=== PATIENT | male | born 1970 | race Caucasian/White ===

== ENCOUNTER 2019-11-17 15:47 | Emergency (ER) | payer OTHER, SELFPAY ==
[2019-11-17 15:48] VITALS: BP 114/65; PULSE 126; RESP 18; TEMP 36.7; O2SAT 96; BMI 30.4
--- NOTE | 2019-11-17 16:02 | XR_ITS ---
PROCEDURE: XR ANKLE RT MIN 3V CLINICAL INDICATION: injury Posttraumatic pain COMPARISON: XR ANKLE RT MIN 3V from 06/03/2019 FINDINGS: There has been prior ORIF of the distal fibula. There is a subtle oblique lucency of the distal fibula which may be related to residual fracture line from the old injury. Please correlate with postoperative studies. There is only 1 other postoperative exam available at this institution dating 06/03/2019. No other significant anomalies are evident. Ankle mortise is preserved in the talar dome has an unremarkable appearance IMPRESSION: Prior ORIF of the distal fibula with oblique lucency of the distal fibula which could be related to residual fracture line from the old injury. Please correlate with other postoperative studies. Cannot exclude the possibility of a nondisplaced acute fracture at this area. Dictated by: Valdemar Quintana MD 11/17/2019 16:19 Electronically signed by Valdemar Quintana MD in [place] 11/17/2019 16:19
--- NOTE | 2019-11-17 16:02 | XR_ITS ---
PROCEDURE: XR ANKLE LT MIN 3V CLINICAL INDICATION: injury Posttraumatic pain COMPARISON: No exams were available for comparison FINDINGS: No fracture or dislocation. No lytic or blastic change. There is normal mineralization. The joint spaces are well-preserved. No significant degenerative/arthritic changes. No erosive changes evident. Other findings:None. IMPRESSION: No acute findings. Dictated by: Valdemar Quintana MD 11/17/2019 16:20 Electronically signed by Valdemar Quintana MD in [facility] 11/17/2019 16:20
--- NOTE | 2019-11-17 16:10 | [facility].EDGENADL ---
ED Disposition Clinical Impression: Contusion of left ankle Qualifiers: Encounter type: initial encounter Qualified Code(s): S90.02XA - Contusion of left ankle, initial encounter Right ankle sprain Qualifiers: Encounter type: initial encounter Involved ligament of ankle: unspecified ligament Qualified Code(s): S93.401A - Sprain of unspecified ligament of right ankle, initial encounter Disposition: Home, Self-Care Condition on Discharge: Good Instructions: How to Use Crutches, DI for Ankle Sprain, DI for Contusion, How to Take Care of Your Splint Additional Instructions: Use crutches, orthopedic boot and maintain splint until follow-up by orthopedic physician or carport erector. Ice and elevation for pain and swelling. [place] for pain. Obtain prior x-rays from [facility] prior to your orthopedic visit. Additional instructions for CONTROLLED SUBSTANCES: You have been prescribed a medication that is a controlled substance. Controlled substances include pain medications known as opiates and sedative nerve medications known as benzodiazepines. Tramadol, fioricet, and gabapentin are also controlled substances. Some common opiates include: Codeine (such as Tylenol #3) Hydrocodone (Vicodin, Lortab, Lorcet, [place]) Oxycodone (Percocet, Percodan, Oxycodone, Oxy IR) Some common benzodiazepines include: Diazepam (Valium) Lorazepam (Ativan) Alprazolam (Xanax) Clonazepam (Klonopin) Oxazepam (Serax) All of these controlled substances are highly addictive and frequently abused. Misuse can and frequently does lead to addiction as well as overdose and . Medication should be stored in a locked cabinet or other secure storage unit. Do not store the medication in a motor vehicle. Short term supplies, 3 days or less, are prescribed because of the highly addictive nature of the medication. Any of the controlled substance medication NOT taken should be disposed of properly and NOT SAVED. The recommended method of disposing of unused medications is: Place the medicines in a sealable plastic bag. If the medicine is a solid, crush it or add water to dissolve it. Add something undesirable (cat litter, coffee grounds, etc.) Dispose of sealed bag in household trash Do not flush or pour unused medicines down a sink or drain. Controlled substances should not be shared, given away or sold. Because of the addictive nature and frequent abuse, these medications are sometimes stolen. These medications should be kept in a safe place where they cannot be stolen. Do not keep them in your car or purse. Lost or stolen prescriptions for controlled substances WILL NOT BE REFILLED in this emergency department, regardless of whether a police report was filed. Prescriptions: Hydrocod/Acet 5/325 mg [[place] 5/325mg tablet] 1 tab PO Q6HP PRN #10 tab PRN Reason: Pain Prescription Printed Referrals: Blanche Hu APRN [Primary Care Provider] - Lauren Ahumada DPM [Staff Physician] - Ruma Osorio MD [Physician] - - Critical Care Critical Care Time: No Attestation: On 11/17/19, the high probability of a clinically significant, sudden or life threatening deterioration of the following system(s) required my full and direct attention, intervention and personal management. The time I documented below is in addition to time spent performing reported procedures but includes the following listed in this critical care notation. Medical Decision Making - Fahad Inquiry Pt receiving controlled substance: Yes Fahad was queried for this patient: Yes Reference #:: [id number] Risks and benefits of using a controlled substance: were discussed with pt by me Comment: 8 rxs. last rx pregabalin 11/09/19 Vital Signs: 11/17/19 15:48 11/17/19 16:33 11/17/19 17:09 Temperature 98.1 F Temperature Source Oral Pulse Rate [Radial] 126 H 117 H 108 H Respiratory Rate 18 Blood Pressure [Right Arm] 114/65 114/40 L 110/63 Blood Pressure Darline
[2019-11-17 16:33] VITALS: BP 114/40; PULSE 117; O2SAT 97
[2019-11-17 17:09] VITALS: BP 110/63; PULSE 108; O2SAT 97
[2019-11-17 17:21] VITALS: BP 110/63; PULSE 108; RESP 18; TEMP 36.8; O2SAT 97
== END 2019-11-17 17:22 | disposition home or self-care (01) ==
PROVIDERS: Emergency Provider Emergency Medicine; PCP Nurse Practitioner
DX: S93.401A Sprain of unspecified ligament of right ankle, initial encounter (principal); S90.02XA Contusion of left ankle, initial encounter; X50.1XXA Overexertion from prolonged static or awkward postures, initial encounter; Y92.017 Garden or yard in single-family (private) house as the place of occurrence of the external cause; W22.8XXA Striking against or struck by other objects, initial encounter; F17.210 Nicotine dependence, cigarettes, uncomplicated
CPT/HCPCS: 29515; 73610; 99284

== ENCOUNTER 2019-12-26 14:38 | Emergency (ER) | payer OTHER, SELFPAY ==
[2019-12-26] VITALS (7 sets, daily range): BP systolic 90–144; BP diastolic 60–116; PULSE 56–70; RESP 15–22; TEMP 36.6–36.7; O2SAT 97–100; BMI 30.4
--- NOTE | 2019-12-26 15:36 | CT_ITS ---
Procedure: CT ABDOMEN PELVIS WO CON Patient Age:49Y CLINICAL INDICATION: PAIN R/O STONE RLQ pain. Since 6 a.m. the the for covering small rule out stone COMPARISON: ABDPEL CT abdomen pelvis wo con from 07/12/2018 TECHNIQUE: No IV contrast but no oral contrast -helical axial images obtained with sagittal and coronal reformats. All CT scans at the facility use one or more dose reduction, viz: automated exposure control, ma/kV adjustment per patient size (including targeted exams where dose is matched to indication, i.e. head), or iterative reconstruction technique. FINDINGS: Lower thorax: No acute finding lung bases clear. Heart normal size tiny 4.5 mm nodule at the left CP angle on axial image 13 unchanged since July 2018, and can be followed. A vague 3 mm low-density at the periphery of left lower lobe axial image 3 stable as well. However given history of smoking may want consider follow-up CT chest or screening CT chest within 12-18 months in this smoker for more complete survey of the entire chest and to serve as baseline for future if significant smoking history ABDOMEN: Liver: No masses or biliary dilatation. Fatty changes are less evident than on last year's study. Stable very slightly generous left lobe similar to previous study.. Gallbladder: Contracted gallbladder contracted state likely accounts for slight generous wall thickness. No gallstones.. Common duct normal diameter no biliary ductal dilatation. No radio opaque stones. Pancreas: Unchanged. No masses. No inflammatory changes. No ductal dilatation. Adrenals: unremarkable KIDNEYS/URETERS: .. no calculi at either kidney but no hydronephrosis Right kidney: Question/suggestion of very subtle additional stranding about the the lower pole right kidney. This is best seen on axial images 60-66 and from coronal image 46-40. Similar features were seen on the previous 2019 study but today's findings here very slightly more evident. This is of questionable and with normal urinalysis most likely reflect some mild chronic changes but with the CT parents initially question of a recently passed stone or possibly small focal area of inflammation of such is localized pyelonephritis,. But with negative urinalysis I doubt this is of significance. To me shows no evidence of blood or nor UTI. However if if pain does persist in this region I would note this subtle stranding a extends from right kidney it towards the posterior aspect of right colon on axial image 63. And if pain persist and negative urine I would question if there could conceivably be a small inflamed diverticulum arising from the posterior aspect the padded flexure extending towards right kidney. Unlikely and unusual but mentioned this possibility if pain persist The right colon shows no mass lesion here. A generous stool is seen at right colon. The appendix and terminal ileum are well visualized and appear normal. No evidence of appendicitis. The small bowel appears normal in caliber the with no dilatation.. Unremarkable. Pelvis shows no free fluid. Small prostate and seminal vesicles appears satisfactory. Upper normal wall thickness at urinary bladder in part reflects its lack of distension Stomach& bowel: Nondistended. No obvious mass or thickening. Peritoneum: No abnormal fluid collections. . No free air. Lymph nodes: No enlarged lymph nodes apparent. Vasculature: No evidence of abdominal aortic aneurysm. The no retroperitoneal findings Bones: No acute fracture IMPRESSION: No prominent findings abdomen or pelvis. Minor observations below .Appendix normal. Terminal ileum normal Generous stool right colon noted Comment: Initially question kathrin
[2019-12-26 15:42] LABS: Basophils # 0.1 K/mm3 (0-0.2); Basophils % 0.7 % (0.1-2.0); Eosinophils # 0.3 K/mm3 (0.0-0.4); Eosinophils % 3.3 % (0.1-12.0); Hematocrit 44.4 % (42.0-52.0); Lymphocytes # 1.7 K/mm3 (0.7-4.5); Lymphocytes % 20.8 % (10-50); Mean Corpuscular HGB Conc 33.8 g/dL (31.8-35.4); Mean Corpuscular Hemoglobin 31.2 pg (27.0-31.2); Mean Corpuscular Volume 92.2 fl (80-94); Mean Platelet Volume 7.7 fl (7.4-10.4); Monocytes # 0.3 K/mm3 (0.1-1.0); Monocytes % 3.4 % (1.7-9.3); Neutrophils # 5.9 K/mm3 (1.8-7.8); Neutrophils % 71.8 % (37.0-80.0); Platelet Count 251 K/mm3 (142-424); Red Blood Count 4.81 M/mm3 (4.60-6.20); White Blood Count 8.2 K/mm3 (4.8-10.8)
[2019-12-26 15:46] LABS: Alanine Aminotransferase 29 U/L (12-78); Albumin Level 4.7 g/dl (3.5-5.0); Albumin/Globulin Ratio 1.4 (1.1-1.8); Alkaline Phosphatase 58 U/L (38-126); Anion Gap 11.4 mEq/L (5-15); Aspartate Amino Transferase 25 U/L (17-59); Bilirubin,Total 0.7 mg/dl (0.2-1.3); Blood Urea Nitrogen 12 mg/dl (9-20); Carbon Dioxide 29 mmol/L (22.0-30.0); Chloride 106 mmol/L (98-107); Creatinine Clearance Estimated 236 mL/min (50-200); Estimated Glomerular Filt Rate 143 ml/min (>60); GFR (African American) 173 ML/MIN (>60); Globulin 3.4 g/dL (1.3-3.2); Glucose 129 mg/dl (74-100); Potassium 4.4 mmoL/L (3.5-5.1); Sodium 142 mmol/L (136-145); Total Protein,Serum 8.1 g/dl (6.3-8.2)
[2019-12-26 15:48] LABS: Microscopic, Urine URINE MICROSCOPIC (MICROSCOPIC)
[2019-12-26 15:56] LABS: Appearance,Urine CLEAR (Clear); Bilirubin,Urine Negative (Negative); Blood, Urine Negative (Negative); Color,Urine YELLOW (Yellow); Glucose,Urine (UA) Negative (Negative); Ketones,Urine Negative (Negative); Leukocyte Esterase,Urine Negative (Negative); Nitrate,Urine Negative (Negative); PH,Urine 5.5 (5.0-8.5); Protein,Urine Negative (Negative); Specific Gravity, Urine 1.025 (1.005-1.030); Urobilinogen,Urine 0.2 EU/dl (0.2)
[2019-12-26 16:02] LABS: Squamous Epithelial Cell,Urine Occasional #/hpf (0-5); WBC,Urine Occasional #/hpf (0-3)
--- NOTE | 2019-12-26 16:33 | PC.NURSE ---
Pt provided with blanket at this time.
--- NOTE | 2019-12-26 17:00 | PC.NURSE ---
family at bedside waiting for
--- NOTE | 2019-12-26 18:30 | PC.NURSE ---
pt waiting to see md. family at bedside. pt upset with wait to be seen. informed of delay
--- NOTE | 2019-12-26 19:09 | [facility].EDGENADL ---
ED Disposition Clinical Impression: Right flank pain Constipation Qualifiers: Constipation type: unspecified constipation type Qualified Code(s): K59.00 - Constipation, unspecified Disposition: Home, Self-Care Condition on Discharge: Fair Instructions: DI for Constipation, DI for Flank Pain Additional Instructions: Tramadol and ibuprofen for pain. Follow-up with your primary care provider on Saturday. MiraLAX for constipation. A pulmonary nodule (spot on the lung) was discovered during your evaluation today. It is recommended that you follow-up with a primary care provider for further evaluation. Radiologist recommends repeat CT scan in 6 months. Additional instructions for CONTROLLED SUBSTANCES: You have been prescribed a medication that is a controlled substance. Controlled substances include pain medications known as opiates and sedative nerve medications known as benzodiazepines. Tramadol, fioricet, and gabapentin are also controlled substances. Some common opiates include: Codeine (such as Tylenol #3) Hydrocodone (Vicodin, Lortab, Lorcet, [place]) Oxycodone (Percocet, Percodan, Oxycodone, Oxy IR) Some common benzodiazepines include: Diazepam (Valium) Lorazepam (Ativan) Alprazolam (Xanax) Clonazepam (Klonopin) Oxazepam (Serax) All of these controlled substances are highly addictive and frequently abused. Misuse can and frequently does lead to addiction as well as overdose and . Medication should be stored in a locked cabinet or other secure storage unit. Do not store the medication in a motor vehicle. Short term supplies, 3 days or less, are prescribed because of the highly addictive nature of the medication. Any of the controlled substance medication NOT taken should be disposed of properly and NOT SAVED. The recommended method of disposing of unused medications is: Place the medicines in a sealable plastic bag. If the medicine is a solid, crush it or add water to dissolve it. Add something undesirable (cat litter, coffee grounds, etc.) Dispose of sealed bag in household trash Do not flush or pour unused medicines down a sink or drain. Controlled substances should not be shared, given away or sold. Because of the addictive nature and frequent abuse, these medications are sometimes stolen. These medications should be kept in a safe place where they cannot be stolen. Do not keep them in your car or purse. Lost or stolen prescriptions for controlled substances WILL NOT BE REFILLED in this emergency department, regardless of whether a police report was filed. Prescriptions: Ibuprofen [Ibuprofen 800mg Tab] 800 mg PO Q8HP PRN #15 tab PRN Reason: Moderate Pain Prescription Printed polyethylene glycoL 3350 [Miralax 17gm Packet] 17 gm PO DAILY #5 packet Prescription Printed Referrals: Blanche Hu APRN [Primary Care Provider] - - Critical Care Critical Care Time: No Attestation: On 12/26/19, the high probability of a clinically significant, sudden or life threatening deterioration of the following system(s) required my full and direct attention, intervention and personal management. The time I documented below is in addition to time spent performing reported procedures but includes the following listed in this critical care notation. Medical Decision Making - Medical Records Medical records reviewed: Yes: I reviewed the patient's medical records. MR Comment: Seen by me recently for ankle pain. Given a prescription for [place]. Says that he followed up with his orthopedist. He says he is not currently on any pain medicines for that condition. - Fahad Inquiry Pt receiving controlled substance: Yes Fahad was queried for this patient: Yes Reference #:: [id number] Risks and benefits of using a controlled substance: were discussed with pt by me Comment: 12 rxs. since I wrote rx for norco last visit here 3 rxs Tramadol Vital Signs: 12/26/19 15:38 12/26/19 16:34 12/26/19 17:00
[2019-12-26 19:35] LABS: Amylase 55 U/L (30-110); Lipase 218 U/L (23-300)
== END 2019-12-26 20:20 | disposition home or self-care (01) ==
PROVIDERS: Emergency Provider Emergency Medicine; PCP Nurse Practitioner
DX: K59.00 Constipation, unspecified (principal); R10.31 Right lower quadrant pain; F17.210 Nicotine dependence, cigarettes, uncomplicated
CPT/HCPCS: 74176; 80053; 81001; 82150; 83690; 85025; 96365; 96375; 99284; J2405

== ENCOUNTER 2020-04-04 20:19 | Emergency (ER) | payer OTHER, SELFPAY ==
[2020-04-04 20:27] VITALS: BP 129/91; PULSE 92; RESP 16; TEMP 36.6; O2SAT 95; BMI 31.6
[2020-04-04 20:46] VITALS: BP 0/0; PULSE 0; RESP 0; TEMP -17.7; TEMP 0
== END 2020-04-04 20:50 | disposition left against medical advice (07) ==
PROVIDERS: Emergency Provider Emergency Medicine; PCP Nurse Practitioner
DX: Z53.21 Procedure and treatment not carried out due to patient leaving prior to being seen by health care provider (principal); S80.11XA Contusion of right lower leg, initial encounter; R03.0 Elevated blood-pressure reading, without diagnosis of hypertension
CPT/HCPCS: 99211

== ENCOUNTER 2020-04-08 15:33 | Emergency (ER) | payer OTHER, SELFPAY ==
[2020-04-08 15:35] VITALS: BP 139/89; PULSE 86; RESP 20; TEMP 36.7; O2SAT 96; BMI 31.6
--- NOTE | 2020-04-08 15:48 | XR_ITS ---
PROCEDURE: XR KNEE RT 3V CLINICAL INDICATION: trauma COMPARISON: CR XR FEMUR RT 2V from 04/08/2020 FINDINGS: No fracture or dislocation. No lytic or blastic change. There is normal mineralization. The joint spaces are well-preserved. No significant degenerative/arthritic changes. No erosive changes evident. Other findings:None. IMPRESSION: No acute findings. Dictated by: Valdemar Quintana MD 04/08/2020 16:38 Valdemar Quintana MD in [place] 04/08/2020 16:38
--- NOTE | 2020-04-08 15:48 | XR_ITS ---
PROCEDURE: XR HIP RT 2-3V W/PELVIS CLINICAL INDICATION: trauma Pain following injury COMPARISON: CR XR FEMUR RT 2V from 04/08/2020 FINDINGS: No fracture or dislocation. No lytic changes. There is some minimal cortical thickening involving the mid shaft of the femur medially. This is nonspecific and could be due to old injury. IMPRESSION: No acute findings. Dictated by: Valdemar Quintana MD 04/08/2020 16:38 Valdemar Quintana MD in [facility] 04/08/2020 16:38
--- NOTE | 2020-04-08 15:48 | XR_ITS ---
PROCEDURE: XR FEMUR RT 2V CLINICAL INDICATION: trauma Pain COMPARISON: No exams were available for comparison FINDINGS: No fracture or dislocation. No lytic or blastic change. There is normal mineralization. The joint spaces are well-preserved. No significant degenerative/arthritic changes. No erosive changes evident. Other findings:There is some minimal cortical thickening involving the mid shaft of the femur medially nonspecific and may be due to an old injury. IMPRESSION: No acute findings. Dictated by: Valdemar Quintana MD 04/08/2020 16:39 Valdemar Quintana MD in [facility] 04/08/2020 16:39
--- NOTE | 2020-04-08 15:49 | XR_ITS ---
PROCEDURE: XR ANKLE RT MIN 3V CLINICAL INDICATION: trauma Posttraumatic pain and swelling COMPARISON: CR XR ANKLE RT MIN 3V from 06/03/2019 CR XR ANKLE LT MIN 3V from 11/17/2019 CR XR ANKLE RT MIN 3V from 11/17/2019 CR XR TIBIA FIBULA RT 2V from 04/08/2020 FINDINGS: There is diffuse soft tissue swelling medially and laterally at the ankle. There has been prior hardware removal with removal of the bone plate and multiple scored a cul screws at the distal fibula. There is an old fracture of the posterior distal tibia. Ankle mortise is preserved in the talar dome has an unremarkable appearance. No acute fracture is evident. IMPRESSION: Postsurgical changes with soft tissue swelling. No acute fracture. Dictated by: Valdemar Quintana MD 04/08/2020 16:36 Valdemar Quintana MD in [facility] 04/08/2020 16:36
--- NOTE | 2020-04-08 15:49 | XR_ITS ---
PROCEDURE: XR FOOT RT MIN 3V CLINICAL INDICATION: trauma Posttraumatic pain COMPARISON: No exams were available for comparison FINDINGS: No fracture or dislocation. No lytic or blastic change. There is normal mineralization. The joint spaces are well-preserved. No significant degenerative/arthritic changes. No erosive changes evident. Other findings:There is a prominent calcaneal spur. IMPRESSION: Negative foot Dictated by: Valdemar Quintana MD 04/08/2020 16:37 Valdemar Quintana MD in [facility] 04/08/2020 16:37
--- NOTE | 2020-04-08 15:50 | HMH.EDGENADL ---
ED Disposition Clinical Impression: Right ankle sprain Qualifiers: Encounter type: initial encounter Involved ligament of ankle: unspecified ligament Qualified Code(s): S93.401A - Sprain of unspecified ligament of right ankle, initial encounter Contusion of right lower extremity Qualifiers: Encounter type: initial encounter Qualified Code(s): S80.11XA - Contusion of right lower leg, initial encounter Disposition: Home, Self-Care Condition on Discharge: Good Additional Instructions: You were seen on an emergency basis. It is very important that you follow up with your primary care provider and/or specialist as we discussed within 2 days. All labs and imaging were obtained and interpreted here to rule out life threatening emergencies, but your final results should be reviewed by your primary doctor at your follow up appointment. Please return to the emergency department if any of your symptoms worsen, or if they do not improve as we discussed. Referrals: Blanche Hu APRN [Primary Care Provider] - Ruma Osorio MD [Physician] - - Critical Care Critical Care Time: No Attestation: On 04/08/20, the high probability of a clinically significant, sudden or life threatening deterioration of the following system(s) required my full and direct attention, intervention and personal management. The time I documented below is in addition to time spent performing reported procedures but includes the following listed in this critical care notation. Medical Decision Making - Medical Records Medical records reviewed: Yes: I reviewed the patient's medical records. - Fahad Inquiry Pt receiving controlled substance: No Vital Signs: 04/08/20 15:35 04/08/20 16:24 Temperature 98.0 F Temperature Source Oral Pulse Rate [Left Radial] 86 68 Respiratory Rate 20 20 Blood Pressure [Right Arm] 139/89 129/80 Blood Pressure Mean [Right Arm] 105 96 Blood Pressure Source [Right Arm] Automatic Cuff Automatic Cuff Blood Pressure Position [Right Arm] Sitting Sitting 02 Sat by Pulse Oximetry 96 97 Oxygen Delivery Method Room Air Room Air Orders (Tests/Meds): ED MEDICATIONS Discontinued Medications Generic Name Dose Route Start Last Admin Trade Name Freq PRN Reason Stop Dose Admin Hydrocodone Bitart/Acetaminophen 1 tab 04/08/20 15:50 04/08/20 16:01 Hydrocodone/Apap 5/325 Mg Tablet PO 04/08/20 15:51 1 tab ONCE ONE Administration Medical Decision Narrative: 49-year-old male presenting with right lower extremity injury. Distal pulses intact. X-rays obtained of the pelvis, right hip, right femur, right knee, right hip/fib, right ankle and right foot. These were negative for acute disease including fracture or dislocation but did demonstrate a well-healing old fracture of the distal fibula that is noncontributory to this visit. Patient given [place] here for pain control. Will place patient in Airc[place], ELS brace and given crutches and make him nonweightbearing until follow-up with orthopedics. No other injury sustained. General Adult HPI - General Stated complaint: AO fall on 04/05 injured R knee and ankle Time Seen by Provider: 04/08/20 15:50 - History of Present Illness HPI narrative: This is a 49-year-old male with a history of diabetes mellitus who presents 2 days after a right lower extremity injury whereby he was on a ladder and fell through one of the rungs dangling from his right lower extremity. He presented here initially but without being seen. Since then has been taking his prescribed tramadol without relief. He has had minimal weightbearing to the right lower extremity but is able to ambulate with an antalgic gait. No head strike or loss of consciousness. No other injury sustained. - Related Data Previous Rx's Medication Instructions Recorded Hydrocod/Acet 5/325 mg [[place] 1 tab PO Q6HP PRN #10 tab 11/17/19 5/325mg tablet] Ibuprofen [Ibuprofen 800mg Tab] 800 mg PO Q8HP PRN #
[2020-04-08 16:24] VITALS: BP 129/80; PULSE 68; RESP 20; O2SAT 97
[2020-04-08 17:07] VITALS: BP 118/67; PULSE 76; RESP 18; TEMP 36.7; O2SAT 99
== END 2020-04-08 17:08 | disposition home or self-care (01) ==
PROVIDERS: Emergency Provider Physician Assistant; PCP Nurse Practitioner
DX: S80.11XA Contusion of right lower leg, initial encounter (principal); S93.401A Sprain of unspecified ligament of right ankle, initial encounter; W11.XXXA Fall on and from ladder, initial encounter; Y92.89 Other specified places as the place of occurrence of the external cause; F17.210 Nicotine dependence, cigarettes, uncomplicated
CPT/HCPCS: 29505; 73502; 73552; 73562; 73590; 73610; 73630; 99282

== ENCOUNTER → 2020-04-20 12:03 | Outpatient (CLI) | payer OTHER, SELFPAY ==
--- NOTE | 2020-04-20 12:11 | XR_ITS ---
PROCEDURE: XR ANKLE RT MIN 3V CLINICAL INDICATION: right ankle injury Pain, fracture and Ree fracture COMPARISON: CR XR ANKLE RT MIN 3V from 06/03/2019 CR XR ANKLE LT MIN 3V from 11/17/2019 CR XR ANKLE RT MIN 3V from 11/17/2019 CR XR ANKLE RT MIN 3V from 04/08/2020 FINDINGS: Postsurgical changes with multiple lucencies through the distal fibula once again noted. There is diffuse soft tissue swelling medially and laterally. Ankle mortise is not widened and the talar dome has an unremarkable appearance. Mild hypertrophy noted at the anterior distal tibia. IMPRESSION: Postsurgical changes with soft tissue swelling Dictated by: Valdemar Quintana MD 04/20/2020 14:19 Valdemar Quintana MD in [facility] 04/20/2020 14:19
== END ==
PROVIDERS: PCP Nurse Practitioner; Visit Provider Orthopaedic Surgery
DX: S80.11XA Contusion of right lower leg, initial encounter (principal)
CPT/HCPCS: 73610

== ENCOUNTER 2020-05-12 21:51 | Emergency (ER) | payer OTHER, SELFPAY ==
[2020-05-12 21:52] VITALS: BP 127/74; PULSE 79; RESP 16; TEMP 36.7; O2SAT 96; BMI 32.2
--- NOTE | 2020-05-12 22:29 | HMH.EDWNDL ---
ED Disposition Clinical Impression: Edema of right lower leg Laceration of thigh Qualifiers: Encounter type: initial encounter Laterality: right Qualified Code(s): S71.111A - Laceration without foreign body, right thigh, initial encounter Disposition: Home, Self-Care Condition on Discharge: Good Instructions: DI for Laceration Repair Additional Instructions: please return for eval of lower ext and possible venous doppler in am Referrals: PCP,No [Primary Care Provider] - - Critical Care Critical Care Time: No Attestation: On 05/12/20, the high probability of a clinically significant, sudden or life threatening deterioration of the following system(s) required my full and direct attention, intervention and personal management. The time I documented below is in addition to time spent performing reported procedures but includes the following listed in this critical care notation. Medical Decision Making - Medical Records Medical records reviewed: Yes: I reviewed the patient's medical records. - Fahad Inquiry Pt receiving controlled substance: No Vital Signs: 05/12/20 21:52 Temperature 98.1 F Temperature Source Oral Pulse Rate [Left Radial] 79 Respiratory Rate 16 Blood Pressure [Right Arm] 127/74 Blood Pressure Mean [Right Arm] 91 Blood Pressure Source [Right Arm] Automatic Cuff Blood Pressure Position [Right Arm] Sitting 02 Sat by Pulse Oximetry 96 Oxygen Delivery Method Room Air Wound/Laceration HPI - General Chief Complaint: Wound/Laceration Stated Complaint: AO 1203 2100 piece metal in R Leg Time Seen by Provider: 05/12/20 22:05 Mode of Arrival: Ambulatory Source of Information: Patient, Spouse, Medical Record Limitations: No Limitations Description of Symptoms (Recalled from ER Triage Doc. by RN): Pt cut his right thigh on trailer. Pt unsure of last tetnus shot. - History of Present Illness HPI narrative: laceration to rt thigh has he caught on metal - he has ongoing swelling to rt lower ext - has prev fx to rt lower leg and has been ambulating and has reddness and swelling and has been asked to get venous doppler for possible dvt Onset (ago): hour(s) Extremity Location: Right: thigh Place: home Patient tetanus UTD: No Context: accidental Associated symptoms: none - Related Data Home Medications Medication Instructions Recorded Confirmed atorvastatin 10 mg tablet 10 mg PO DAILY 04/20/20 05/12/20 cetirizine 10 mg capsule 10 mg PO DAILY 04/20/20 05/12/20 lisinopril 5 mg tablet 5 mg PO DAILY 04/20/20 05/12/20 metformin 500 mg tablet 500 mg PO DAILY 04/20/20 05/12/20 omeprazole 20 mg capsule,delayed 20 mg PO DAILY 04/20/20 05/12/20 release pregabalin 100 mg capsule 100 mg PO DAILY 04/20/20 05/12/20 trazodone 50 mg tablet 50 mg PO DAILY 04/20/20 05/12/20 Allergies Allergy/AdvReac Type Severity Reaction Status Date / Time No Known Allergies Allergy Verified 04/20/20 13:02 [facility] History - Hepatitis A Screen Drug use history?: No High risk sexual behaviors?: No History of sexually transmitted infection?: No Currently employed?: No Childcare worker?: No Do you have indoor plumbing?: Yes Do you have electricity?: Yes Attestation statement:: This patient has been screened for Hepatitis A risk factors. I have reviewed the patient's past medical history: Yes Medical History: Reports:: Anxiety, Diabetes Mellitus Type 2, Gastroesophageal Reflux Disease(GERD), Hypertension Denies:: Cancer, Diabetes Mellitus Type 1, Internal Pacemaker, MRSA Other Medical History: Reports: Arthritis Laterality Cases: Right: Other, Bilateral: Tonsillectomy Other Surgeries: No: Pacemaker Amputation: No Fractures: Yes Comment: RT ankle surgery 05/28 at [facility]; RT ankle hardware removal 01/2020 at [facility]. - Social History Smoking Status: Current every day smoker Tobacco Type: cigarettes # Packs/Day (cigarettes): 1 Alcohol Intake: current Alcohol Intake Frequency:: holiday
[2020-05-12 22:43] VITALS: BP 108/72; PULSE 80; RESP 19; TEMP 36.8; O2SAT 98
== END 2020-05-12 22:48 | disposition home or self-care (01) ==
PROVIDERS: Emergency Provider Emergency Medicine
DX: S71.111A Laceration without foreign body, right thigh, initial encounter (principal); W26.8XXA Contact with other sharp object(s), not elsewhere classified, initial encounter; Y92.89 Other specified places as the place of occurrence of the external cause; E78.5 Hyperlipidemia, unspecified; I10 Essential (primary) hypertension; Z23 Encounter for immunization; E11.9 Type 2 diabetes mellitus without complications; K21.9 Gastro-esophageal reflux disease without esophagitis; F17.210 Nicotine dependence, cigarettes, uncomplicated
CPT/HCPCS: 12001; 90471; 90714; 99281

== ENCOUNTER 2020-08-17 11:38 | Emergency (ER) | payer OTHER, SELFPAY ==
[2020-08-17 11:40] VITALS: BP 117/71; PULSE 81; RESP 16; O2SAT 98
[2020-08-17 11:42] VITALS: BP 119/88; PULSE 89; RESP 18; TEMP 36.6; O2SAT 97; BMI 31.6
--- NOTE | 2020-08-17 11:57 | XR_ITS ---
PROCEDURE: XR FOOT RT 2V CLINICAL INDICATION: fall, swelling, pain COMPARISON: CR XR FOOT RT MIN 3V from 04/08/2020 FINDINGS: No fracture or dislocation. No lytic or blastic change. There is normal mineralization. The joint spaces are well-preserved. No significant degenerative/arthritic changes. No erosive changes evident. Other findings:Mild hallux valgus. Small calcaneal spur IMPRESSION: No acute findings. Dictated by: Valdemar Quintana MD 08/17/2020 15:56 Valdemar Quintana MD in [place] 08/17/2020 15:56
--- NOTE | 2020-08-17 11:57 | CA_ITS ---
APPROVED REPORT Right Lower Extremity Venous Study for DVT. Travel Clerk: Mame Vides RVT Indications Lower Extremity Pain: Right Lower Extremity Edema: Right Current Smoker swelling to RLE Risk Factors Current Smoker Vein Imaging CFV (R): compressive, spontaneous, phasic, augmentation FEM (R): compressive, spontaneous, phasic, augmentation POP (R): compressive, spontaneous, phasic, augmentation PTV (R): Compressible GSV (R): Compressible Peroneals (R):Compressible GAS (R): Compressible Findings Study suggests no evidence of DVT of the right lower extremity. Study suggests no evidence of SVT of the right lower extremity. Conclusion Study suggests no evidence of DVT of the right lower extremity. Study suggests no evidence of SVT of the right lower extremity. Critical Notification Date: 08/17/2020 Time: 12:57 Physician Name: Maria R-DAVID Nurse Electronically signed by : Valdemar Quintana MD 08/17/2020 18:27:59
--- NOTE | 2020-08-17 11:57 | XR_ITS ---
PROCEDURE: XR ANKLE RT MIN 3V CLINICAL INDICATION: fall, swelling, pain COMPARISON: CR XR ANKLE LT MIN 3V from 11/17/2019 CR XR ANKLE RT MIN 3V from 11/17/2019 CR XR ANKLE RT MIN 3V from 04/08/2020 CR XR ANKLE RT MIN 3V from 04/20/2020 FINDINGS: There postsurgical changes of the distal fibula with lucency is noted from previous hardware removal. No acute fracture or dislocation is evident. Soft tissue swelling is present at both medial and lateral aspect of the ankle. There is an old fracture of the posterior distal tibia. Mildly prominent calcaneal spur. IMPRESSION: As above, soft tissue swelling with postsurgical changes otherwise negative Dictated by: Valdemar Quintana MD 08/17/2020 15:55 Valdemar Quintana MD in [place] 08/17/2020 15:55
--- NOTE | 2020-08-17 12:05 | HMH.EDGENADL ---
ED Disposition Clinical Impression: Right ankle sprain Qualifiers: Encounter type: initial encounter Involved ligament of ankle: unspecified ligament Qualified Code(s): S93.401A - Sprain of unspecified ligament of right ankle, initial encounter Disposition: Home, Self-Care Condition on Discharge: Good Instructions: DI for Ankle Sprain Additional Instructions: Wear your orthopedic boot. Stay off of your foot as much as possible, elevate and ice to reduce swelling. Follow-up with Dr. Barrientos, call today to make an appointment to be seen. Continue tramadol for pain. Referrals: Blanche Hu APRN [Primary Care Provider] - Mor Barrientos MD [Staff Physician] - - Critical Care Critical Care Time: No Attestation: On 08/17/20, the high probability of a clinically significant, sudden or life threatening deterioration of the following system(s) required my full and direct attention, intervention and personal management. The time I documented below is in addition to time spent performing reported procedures but includes the following listed in this critical care notation. Medical Decision Making - Medical Records Medical records reviewed: Yes: I reviewed the patient's medical records. MR Comment: Reviewed orthopedic visit with Dr. Barrientos 04/20/2020 - Fahad Inquiry Pt receiving controlled substance: No Fahad was queried for this patient: Yes Vital Signs: 08/17/20 11:40 08/17/20 11:42 08/17/20 13:05 Temperature 97.9 F Temperature Source Oral Pulse Rate Pulse Rate [Right Radial] 81 89 66 Respiratory Rate 16 18 Blood Pressure Blood Pressure [Right Arm] 117/71 119/88 127/72 Blood Pressure Mean [Right Arm] 86 98 90 Blood Pressure Source Blood Pressure Source [Right Arm] Automatic Cuff Automatic Cuff Blood Pressure Position Blood Pressure Position [Right Arm] Sitting Sitting 02 Sat by Pulse Oximetry 98 97 97 Oxygen Delivery Method Room Air Room Air 08/17/20 13:14 Temperature 98.8 F Temperature Source Oral Pulse Rate 70 Pulse Rate [Right Radial] Respiratory Rate 20 Blood Pressure 127/72 Blood Pressure [Right Arm] Blood Pressure Mean [Right Arm] Blood Pressure Source Automatic Cuff Blood Pressure Source [Right Arm] Blood Pressure Position Sitting Blood Pressure Position [Right Arm] 02 Sat by Pulse Oximetry Oxygen Delivery Method Room Air - Lab Data Lab Results 08/17/20 12:00: WBC 7.7, RBC 5.12, Hgb 14.4, Hct 45.6, MCV 89.0, MCH 28.1, MCHC 31.5 L, RDW 13.5, Plt Count 206, MPV 7.7, Neut % (Auto) 62.6, Lymph % (Auto) 28.3, [place] % (Auto) 3.9, Eos % (Auto) 4.6, Baso % (Auto) 0.6, Neut # (Auto) 4.8, Lymph # (Auto) 2.2, [place] # (Auto) 0.3, Eos # (Auto) 0.4, Baso # (Auto) 0.0 08/17/20 12:00: Sodium 139, Potassium 4.2, Chloride 105, Carbon Dioxide 27, Anion Gap 11.2, BUN 13, Creatinine 0.80, Estimated Creat Clear 182, Estimated GFR 102, Est GFR ( Amer) 123, Glucose 141 H, Calcium 9.5, Total Bilirubin 0.4, AST 36, ALT 38, Alkaline Phosphatase 42, C-Reactive Protein 4.0, Total Protein 7.5, Albumin 4.4, Globulin 3.1, Albumin/Globulin Ratio 1.4 08/17/20 12:00: Lactate 1.8 08/17/20 12:00: ESR 10 Result diagrams: 08/17/20 12:00 08/17/20 12:00 Orders (Tests/Meds): ORDERS Category Date Time Status Tibia/fibula XR right 2 views [XR tibia fibula RT 2V] Exams 08/17/20 12:09 Taken Stat XR ankle RT min 3V Stat Exams 08/17/20 11:57 Taken XR foot RT 2V Stat Exams 08/17/20 11:57 Taken Blood Culture Stat Micro 08/17/20 12:00 Received - Radiology Data #1 Image(s): Ankle, Foot/Toes Image Reviewed: Yes I reviewed the patient's radiology image Ankle and foot: Old findings from prior trauma, healed fractures, prior open reduction internal fixation with hardware removal, no acute fracture or dislocation seen. - US Data US Images: Lower Extremity Findings Narrative: As per [facility] procedure, doppler report received from mold repair technician: Negative for DVT Gene
--- NOTE | 2020-08-17 12:09 | XR_ITS ---
PROCEDURE: Lower leg R CLINICAL INDICATION: Pain following injury COMPARISON: No exams were available for comparison FINDINGS: No acute fracture or dislocation. There has been prior hardware removal of the distal fibula. There is soft tissue swelling along the lower leg medially and laterally. No lytic or blastic change IMPRESSION: Postsurgical change. Soft tissue swelling otherwise Dictated by: Valdemar Quintana MD 08/17/2020 16:47 Valdemar Quintana MD in [place] 08/17/2020 16:47
--- NOTE | 2020-08-17 12:21 | PC.NURSE ---
pt return from xray notified cv lab of doppler order
[2020-08-17 12:30] LABS: Basophils % 0.6 % (0.1-2.0); Eosinophils # 0.4 K/mm3 (0.0-0.4); Eosinophils % 4.6 % (0.1-12.0); Hematocrit 45.6 % (42.0-52.0); Hemoglobin 14.4 g/dL (14.1-18.0); Lymphocytes # 2.2 K/mm3 (0.7-4.5); Lymphocytes % 28.3 % (10-50); Mean Corpuscular HGB Conc 31.5 g/dL (31.8-35.4); Mean Corpuscular Hemoglobin 28.1 pg (27.0-31.2); Mean Platelet Volume 7.7 fl (7.4-10.4); Monocytes # 0.3 K/mm3 (0.1-1.0); Monocytes % 3.9 % (1.7-9.3); Neutrophils # 4.8 K/mm3 (1.8-7.8); Neutrophils % 62.6 % (37.0-80.0); Platelet Count 206 K/mm3 (142-424); Red Blood Count 5.12 M/mm3 (4.60-6.20); Red Cell Distribution Width 13.5 % (11.5-17.5); White Blood Count 7.7 K/mm3 (4.8-10.8)
[2020-08-17 12:34] LABS: Lactic Acid 1.8 mmol/L (0.7-2.1)
[2020-08-17 12:35] LABS: Alanine Aminotransferase 38 U/L (12-78); Albumin Level 4.4 g/dl (3.5-5.0); Albumin/Globulin Ratio 1.4 (1.1-1.8); Alkaline Phosphatase 42 U/L (38-126); Anion Gap 11.2 mEq/L (5-15); Aspartate Amino Transferase 36 U/L (17-59); Bilirubin,Total 0.4 mg/dl (0.2-1.3); Blood Urea Nitrogen 13 mg/dl (9-20); Calcium 9.5 mg/dl (8.4-10.2); Carbon Dioxide 27 mmol/L (22.0-30.0); Chloride 105 mmol/L (98-107); Creatinine Clearance Estimated 182 mL/min (50-200); Estimated Glomerular Filt Rate 102 ml/min (>60); GFR (African American) 123 ML/MIN (>60); Globulin 3.1 g/dL (1.3-3.2); Glucose 141 mg/dl (74-100); Potassium 4.2 mmoL/L (3.5-5.1); Sodium 139 mmol/L (136-145); Total Protein,Serum 7.5 g/dl (6.3-8.2)
[2020-08-17 13:05] VITALS: BP 127/72; PULSE 66; O2SAT 97
[2020-08-17 13:12] LABS: Erythrocyte Sedimentation Rate 10 mm/hr (0-20)
[2020-08-17 13:14] VITALS: BP 127/72; PULSE 70; RESP 20; TEMP 37.1; O2SAT 98
== END 2020-08-17 13:15 | disposition home or self-care (01) ==
PROVIDERS: Emergency Provider Emergency Medicine; PCP Nurse Practitioner
DX: S93.401A Sprain of unspecified ligament of right ankle, initial encounter (principal); W00.0XXA Fall on same level due to ice and snow, initial encounter; E78.5 Hyperlipidemia, unspecified; I10 Essential (primary) hypertension; K21.9 Gastro-esophageal reflux disease without esophagitis; F17.210 Nicotine dependence, cigarettes, uncomplicated; Z79.84 Long term (current) use of oral hypoglycemic drugs; E11.65 Type 2 diabetes mellitus with hyperglycemia; Z79.899 Other long term (current) drug therapy
CPT/HCPCS: 73590; 73610; 73620; 80053; 83605; 85025; 85651; 86140; 87040; 93971; 99282

== ENCOUNTER 2020-09-13 20:09 | Emergency (ER) | payer OTHER, SELFPAY ==
[2020-09-13 20:10] VITALS: BMI 29.5
--- NOTE | 2020-09-13 21:49 | US_ITS ---
PROCEDURE: US TESTICULAR CLINICAL INDICATION: Testicular pain Pain and swelling of the testicles COMPARISON: No exams were available for comparison FINDINGS: Right testicle is 5 3 x 3 cm. Moderate-sized right hydrocele with some debris within the fluid. No right testicular mass. Blood flow is present within the right testicle. The epididymis is slightly prominent on right in the epididymal head region. Left testicle is 4 x 2 x 3 cm with blood flow noted. No testicular mass. Unremarkable left-sided epididymis. IMPRESSION: Right hydrocele with some debris within the fluid.. Mild prominence of the right epididymis which could be seen with epididymitis No testicular mass. Bilateral testicular blood flow is present. Dictated by: Valdemar Quintana MD 09/14/2020 06:46 Valdemar Quintana MD in [place] 09/14/2020 06:46
[2020-09-13 22:21] VITALS: BP 145/87; PULSE 74; RESP 16; TEMP 36.6; O2SAT 98; BMI 31.6
[2020-09-13 22:40] LABS: Basophils # 0.1 K/mm3 (0-0.2); Basophils % 0.5 % (0.1-2.0); Eosinophils # 0.4 K/mm3 (0.0-0.4); Eosinophils % 3.5 % (0.1-12.0); Hematocrit 43.8 % (42.0-52.0); Hemoglobin 14.6 g/dL (14.1-18.0); Lymphocytes # 3.3 K/mm3 (0.7-4.5); Lymphocytes % 31.1 % (10-50); Mean Corpuscular HGB Conc 33.2 g/dL (31.8-35.4); Mean Corpuscular Hemoglobin 28.3 pg (27.0-31.2); Mean Corpuscular Volume 85.3 fl (80-94); Mean Platelet Volume 7.7 fl (7.4-10.4); Monocytes # 0.6 K/mm3 (0.1-1.0); Monocytes % 5.2 % (1.7-9.3); Neutrophils # 6.3 K/mm3 (1.8-7.8); Neutrophils % 59.6 % (37.0-80.0); Platelet Count 230 K/mm3 (142-424); Red Blood Count 5.14 M/mm3 (4.60-6.20); Red Cell Distribution Width 13.2 % (11.5-17.5); White Blood Count 10.6 K/mm3 (4.8-10.8)
--- NOTE | 2020-09-13 22:46 | HMH.EDUROGM ---
ED Disposition Clinical Impression: Epididymitis, Edema of right lower leg, Cellulitis of right lower extremity Disposition: Home, Self-Care Condition on Discharge: Good Instructions: DI for Epididymitis Additional Instructions: use meds and see pcp in am Prescriptions: cephALEXin [cephALEXin 500mg capsule*] 500 mg PO TID #30 cap Transmission Status: Pending to [facility] levoFLOXacin [Levaquin 500mg tab] 500 mg PO DAILY #7 tab Transmission Status: Pending to [facility] Referrals: Blanche Hu APRN [Primary Care Provider] - - Critical Care Critical Care Time: No Attestation: On 09/13/20, the high probability of a clinically significant, sudden or life threatening deterioration of the following system(s) required my full and direct attention, intervention and personal management. The time I documented below is in addition to time spent performing reported procedures but includes the following listed in this critical care notation. Medical Decision Making - Medical Records Medical records reviewed: Yes: I reviewed the patient's medical records. - Fahad Inquiry Pt receiving controlled substance: No Vital Signs: 09/13/20 22:21 Temperature 97.8 F Temperature Source Oral Pulse Rate [Right] 74 Respiratory Rate 16 Blood Pressure [Right Arm] 145/87 H Blood Pressure Mean [Right Arm] 106 Blood Pressure Source [Right Arm] Automatic Cuff Blood Pressure Position [Right Arm] Sitting 02 Sat by Pulse Oximetry 98 Oxygen Delivery Method Room Air - Lab Data Lab results reviewed: Yes: I reviewed the patient's lab results. Lab Results 09/13/20 22:35: WBC 10.6, RBC 5.14, Hgb 14.6, Hct 43.8, MCV 85.3, MCH 28.3, MCHC 33.2, RDW 13.2, Plt Count 230, MPV 7.7, Neut % (Auto) 59.6, Lymph % (Auto) 31.1, [place] % (Auto) 5.2, Eos % (Auto) 3.5, Baso % (Auto) 0.5, Neut # (Auto) 6.3, Lymph # (Auto) 3.3, [place] # (Auto) 0.6, Eos # (Auto) 0.4, Baso # (Auto) 0.1 09/13/20 22:35: Sodium 139, Potassium 3.9, Chloride 100, Carbon Dioxide 31 H, Anion Gap 11.9, BUN 12, Creatinine 0.70, Estimated Creat Clear 208, Estimated GFR 119, Est GFR ( Amer) 144, Glucose 113 H, Calcium 9.8, Total Bilirubin 0.7, AST 28, ALT 21, Alkaline Phosphatase 41, C-Reactive Protein 4.6 H, Total Protein 7.8, Albumin 4.8, Globulin 3.0, Albumin/Globulin Ratio 1.6 Result diagrams: 09/13/20 22:35 09/13/20 22:35 Orders (Tests/Meds): ORDERS Category Date Time Status C-Reactive Protein Stat Lab 09/13/20 22:35 Results Complete Blood Count Auto Diff Stat Lab 09/13/20 22:35 Results Comprehensive Metabolic Panel Stat Lab 09/13/20 22:35 Results Erythrocyte Sedimentation Rate Stat Lab 09/13/20 22:35 Results Procalcitonin Stat Lab 09/13/20 22:35 Results Urinalysis and Microscopic Stat Lab 09/13/20 22:28 Ordered US scrotum [US Testicular] Stat Ultrasound 09/13/20 21:49 Taken - US Data US Images: Other (scrotal) ED US Reviewed: Yes: I discussed the US results w/the radiologist Findings Narrative: hydrocele Medical Decision Narrative: no torsion and has hx of rt swollen leg and has appt in am with pcp Male Urogenital HPI - General Chief complaint: Urogenital-Male Stated complaint: right testicle pain and swelling Time Seen by Provider: 09/13/20 22:40 Mode of Arrival: Ambulatory Source of Information: Patient, Medical Record Limitations: No Limitations Description of Symptoms (Recalled from ER Triage Doc. by RN): Right testicle pain no known injury - History of Present Illness HPI Narrative: pt with pain to rt testicle w/o trauma or fever and no penile d/c - also has chronic swelling to rt lower leg with reddness - has appt with pcp in am Complaint: testicle pain Onset (ago): day(s) Location: right testicle Severity: moderate Reports: denies other symptoms - Related Data Sexually active: Yes Home Medications Medication Instructions Recorded Confirmed atorvastatin 10 mg tablet
[2020-09-13 22:48] LABS: Alanine Aminotransferase 21 U/L (12-78); Albumin Level 4.8 g/dl (3.5-5.0); Albumin/Globulin Ratio 1.6 (1.1-1.8); Alkaline Phosphatase 41 U/L (38-126); Anion Gap 11.9 mEq/L (5-15); Aspartate Amino Transferase 28 U/L (17-59); Bilirubin,Total 0.7 mg/dl (0.2-1.3); Blood Urea Nitrogen 12 mg/dl (9-20); Calcium 9.8 mg/dl (8.4-10.2); Carbon Dioxide 31 mmol/L (22.0-30.0); Chloride 100 mmol/L (98-107); Creatinine Clearance Estimated 208 mL/min (50-200); Estimated Glomerular Filt Rate 119 ml/min (>60); GFR (African American) 144 ML/MIN (>60); Glucose 113 mg/dl (74-100); Potassium 3.9 mmoL/L (3.5-5.1); Sodium 139 mmol/L (136-145); Total Protein,Serum 7.8 g/dl (6.3-8.2)
[2020-09-13 22:53] LABS: C-Reactive Protein 4.6 mg/L (0-4)
[2020-09-13 23:06] LABS: Procalcitonin 0.055 ng/mL (0.0-2.0)
--- NOTE | 2020-09-13 23:19 | PC.NURSE ---
S/W [facility] on-call pharmacy for Lovenox dosing d/t DVT. 120mg SQ doing given
[2020-09-13 23:20] VITALS: BP 127/83; PULSE 87; RESP 17; TEMP 36.9; O2SAT 99
[2020-09-13 23:21] LABS: Erythrocyte Sedimentation Rate 7 mm/hr (0-20)
[2020-09-13 23:33] LABS: Microscopic, Urine URINE MICROSCOPIC (MICROSCOPIC)
[2020-09-13 23:45] LABS: Appearance,Urine CLEAR (Clear); Bilirubin,Urine Negative (Negative); Blood, Urine Negative (Negative); Color,Urine YELLOW (Yellow); Glucose,Urine (UA) Negative (Negative); Ketones,Urine Negative (Negative); Leukocyte Esterase,Urine Negative (Negative); Nitrate,Urine Negative (Negative); PH,Urine 6.5 (5.0-8.5); Protein,Urine TRACE (Negative); Urobilinogen,Urine 0.2 EU/dl (0.2)
[2020-09-13 23:54] LABS: Bacteria,Urine Trace /lpf
== END 2020-09-13 23:39 | disposition home or self-care (01) ==
PROVIDERS: Emergency Provider Emergency Medicine; PCP Nurse Practitioner
DX: N45.1 Epididymitis (principal); L03.115 Cellulitis of right lower limb; I10 Essential (primary) hypertension; E11.9 Type 2 diabetes mellitus without complications; K21.9 Gastro-esophageal reflux disease without esophagitis; F41.9 Anxiety disorder, unspecified; Z79.899 Other long term (current) drug therapy
CPT/HCPCS: 76870; 80053; 81001; 84145; 85025; 85651; 86140; 99283

== ENCOUNTER → 2020-09-13 20:19 | Outpatient (CLI) | payer OTHER, SELFPAY ==
--- NOTE | 2020-09-13 20:23 | XR_ITS ---
PROCEDURE: XR HIP LT 2-3V W/PELVIS CLINICAL INDICATION: PAIN IN RIGHT HIP Hip pain COMPARISON: CR XR HIP RT 2-3V W/PELVIS from 09/13/2020 FINDINGS: There is slight decrease in the hip joint space on both sides which may be seen with mild osteoarthritic change. No osteophyte formation apparent. There is a small area bony exostosis along the mid aspect of the femoral neck on both sides. This can be seen femoral acetabular impingement. No acute fracture or dislocation. No lytic or blastic change. Bony hypertrophy is present involving the right SI joint inferiorly IMPRESSION: 1. Mild osteoarthritic change. Possible femoral acetabular impingement. 2. Degenerative changes right SI joint. Dictated by: Valdemar Quintana MD 09/14/2020 05:49 Valdemar Quintana MD in [place] 09/14/2020 05:49
== END ==
PROVIDERS: Visit Provider Anesthesiology
DX: M25.551 Pain in right hip (principal)
CPT/HCPCS: 73502

== ENCOUNTER 2020-09-14 11:34 | Emergency (ER) | payer OTHER, SELFPAY ==
[2020-09-14 12:00] VITALS: BP 146/91; PULSE 87; RESP 19; TEMP 37; O2SAT 98; BMI 32.8
--- NOTE | 2020-09-14 12:28 | HMH.EDUTC ---
[facility] [place] Clinical Impression: Epididymitis, Cellulitis of right lower extremity Disposition: Home, Self-Care Condition on Discharge: Good Instructions: Cellulitis Additional Instructions: Make sure to keep appointment as scheduled with your Family Doctor tomorrow Return if needed Straight to ER if any life threatening symptoms Follow instructions you was given in the Emergency Room and take medication as prescribed Referrals: Blanche Hu APRN [Primary Care Provider] - As needed (Follow up tomorrow as scheduled) Forms: Work/School Release Time of Disposition: 12:36 Medical Decision Making - Fahad Inquiry Pt receiving controlled substance: No Fahad was queried for this patient: No Vital Signs: 09/14/20 12:00 09/14/20 12:43 Temperature 98.6 F 98.6 F Temperature Source Oral Pulse Rate 87 Pulse Rate [Right Brachial] 87 Respiratory Rate 19 19 Blood Pressure 146/91 H Blood Pressure [Right Arm] 146/91 H Blood Pressure Mean [Right Arm] 109 Blood Pressure Source [Right Arm] Automatic Cuff Blood Pressure Position [Right Arm] Sitting 02 Sat by Pulse Oximetry 98 Oxygen Delivery Method Room Air Medical Decision Narrative: Patient did not have out patient order with him for no injections Spoke with staff of his PCP Nadia Quiroga and they advised that she was not there today and would be back tomorrow and he will be seen then they are unsure of why patient is here and what injection he thinks he is suppose to get. Called and spoke with ED physician Dr Hutchinson that saw patient last night and he advised he wanted patient to follow up with PCP and he was given injection he needed last night in the ED and did not recommend he come in today for any medication that he was suppose to follow up with his PCP this morning. Spoke again with patient and he advised he may have been confused and he would follow up with his Family Doctor tomorrow as scheduled for further treatment [facility] [place] - General Stated complaint: was in ER last night, needs injection, male issue Time Seen by Provider: 09/14/20 12:28 Mode of Arrival: Ambulatory Source of Information: Patient Limitations: No Limitations Description of Symptoms (Recalled from Triage Doc. by RN): PATIENT WAS SEEN IN ER LAST NIGHT AND TREATED FOR CELLULITIS AND SWOLLEN TESTICLE. HE REPORTS HE WAS GIVEN ORAL ANTIBIOTICS AND TOLD TO FOLLOW UP WITH PCP TODAY FOR AN INJECTION . HE STATES HIS APPOINTMENT WAS CHANGED TO TOMORROW, BUT WAS TOLD HE NEEDED THE INJECTION TODAY SO HE CAME HERE. HEENT Symptoms (Recalled from RN notes): No Resp Symptoms (Recalled from RN notes): No Skin Symptoms (Recalled from RN notes): No MS Symptoms (Recalled from RN notes): Yes Functional Status (Recalled from RN notes): WNL - History of Present Illness Provider Complaint: Patient state that he was seen and treated last night in the ED for male problem and cellulitis in his right leg State that he was suppose to follow up with his PCP today and they changed his appointment to tomorrow and he understood that he was suppose to get some kind of injection today so he came in the [facility] wanting to get the injection but did not know what it was he was suppose to get thinks it was antibiotic shot of keflex - Related Data Home Medications Medication Instructions Recorded Confirmed atorvastatin 10 mg tablet 10 mg PO DAILY 04/20/20 09/14/20 lisinopril 5 mg tablet 5 mg PO DAILY 04/20/20 09/14/20 metformin 500 mg tablet 500 mg PO QID 04/20/20 09/14/20 omeprazole 20 mg capsule,delayed 20 mg PO DAILY 04/20/20 09/14/20 release pregabalin 100 mg capsule 100 mg PO DAILY 04/20/20 09/14/20 trazodone 50 mg tablet 50 mg PO DAILY 04/20/20 09/14/20 Amitriptyline HCl [Elavil 25mg 25 mg PO DAILY 09/14/20 09/14/20 tablet] Potassium 99 mg PO DAILY 09/14/20 09/14/20 cephALEXin [cephALEXin 500mg 500 mg PO TID 09/14/20 09/14/20 capsule*] levoFLOXacin [Levaquin 500mg 500 mg PO DAILY 09/14/20 09/14/20 ta
[2020-09-14 12:43] VITALS: BP 146/91; PULSE 87; RESP 19; TEMP 37; O2SAT 98
== END 2020-09-14 12:45 | disposition home or self-care (01) ==
PROVIDERS: Emergency Provider Nurse Practitioner; PCP Nurse Practitioner
DX: N45.1 Epididymitis (principal); L03.115 Cellulitis of right lower limb; I10 Essential (primary) hypertension; E78.5 Hyperlipidemia, unspecified; K21.9 Gastro-esophageal reflux disease without esophagitis; F41.9 Anxiety disorder, unspecified; E10.9 Type 1 diabetes mellitus without complications; Z79.84 Long term (current) use of oral hypoglycemic drugs; Z79.899 Other long term (current) drug therapy
CPT/HCPCS: 99202; G0463

== ENCOUNTER 2020-10-13 13:10 | Emergency (ER) | payer OTHER, SELFPAY ==
[2020-10-13 13:11] VITALS: BP 137/81; PULSE 88; RESP 18; TEMP 36.9; O2SAT 99; BMI 32.2
--- NOTE | 2020-10-13 13:29 | XR_ITS ---
PROCEDURE: XR ANKLE RT MIN 3V CLINICAL INDICATION: ankle pain trauma Fall with injury and pain COMPARISON: CR XR ANKLE RT MIN 3V from 11/17/2019 CR XR ANKLE RT MIN 3V from 04/08/2020 CR XR ANKLE RT MIN 3V from 04/20/2020 CR XR ANKLE RT MIN 3V from 08/17/2020 FINDINGS: Postsurgical changes are present with cortical thickening of the distal fibula with lucency is noted consistent with prior bone plate removal. Ankle mortise is intact. No acute fracture or dislocation. There is mild prominence of the calcaneal spur. There is overlying soft tissue swelling on both medial and lateral aspect of the ankle. IMPRESSION: Postsurgical changes with soft tissue swelling. No acute fracture. Dictated by: Valdemar Quintana MD 10/13/2020 13:56 Valdemar Quintana MD in [place] 10/13/2020 13:56
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
[2020-10-13 14:44] VITALS: BP 137/81; PULSE 88; RESP 18; TEMP 36.9; O2SAT 99
== END 2020-10-13 14:46 | disposition home or self-care (01) ==
PROVIDERS: Emergency Provider Emergency Medicine; PCP Nurse Practitioner
DX: S93.401A Sprain of unspecified ligament of right ankle, initial encounter (principal); W10.9XXA Fall (on) (from) unspecified stairs and steps, initial encounter; Y92.019 Unspecified place in single-family (private) house as the place of occurrence of the external cause; F41.8 Other specified anxiety disorders; E78.5 Hyperlipidemia, unspecified; I10 Essential (primary) hypertension; F17.210 Nicotine dependence, cigarettes, uncomplicated
CPT/HCPCS: 73610; 96372; 99282

== ENCOUNTER → 2020-10-18 13:46 | Outpatient (CLI) | payer OTHER, SELFPAY ==
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
== END ==
PROVIDERS: PCP Nurse Practitioner; Visit Provider Orthopaedic Surgery
DX: R60.9 Edema, unspecified (principal)
CPT/HCPCS: 93971

== ENCOUNTER → 2020-10-27 15:31 | Outpatient (CLI) | payer OTHER, SELFPAY ==
--- NOTE | 2020-10-27 15:31 | US_ITS ---
PROCEDURE: US TESTICULAR CLINICAL INDICATION: Testicular pain and swelling COMPARISON: US US TESTICULAR from 09/13/2020 FINDINGS: Right testicle is 5 x 3 x 3 cm. No obvious testicular mass. Testicular blood flow is present. The head of the epididymis is rounded in appearance but somewhat smaller than when compared to 09/13/2020xam exam. There is a moderate-sized right hydrocele with some internal debris The left testicle is 5 x 3 x 3 cm. 5 mm epididymal cyst noted on the left. Left-sided testicular blood flow is present. No obvious mass. IMPRESSION: 1. Moderate-sized right hydrocele. 2. The prominence of the right epididymal head is less so than when compared to the previous exam suggesting improvement in epididymitis 3. No evidence of testicular mass with bilateral testicular blood flow noted. Dictated by: Valdemar Quintana MD 10/27/2020 16:30 Valdemar Quintana MD in [place] 10/27/2020 16:30
== END ==
PROVIDERS: PCP Nurse Practitioner; Visit Provider Urology
DX: N50.819 Testicular pain, unspecified (principal)
CPT/HCPCS: 76870

== ENCOUNTER → 2020-11-24 08:59 | Outpatient (POV) | payer OTHER, SELFPAY ==
[2020-11-24 09:15] VITALS: BP 151/98; PULSE 74; RESP 20; O2SAT 98; BMI 33.7
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
== END ==
PROVIDERS: Visit Provider Clinical Nurse Specialist Family Health
DX: M25.859 Other specified joint disorders, unspecified hip (principal); M54.5 Low back pain; M46.1 Sacroiliitis, not elsewhere classified; M79.604 Pain in right leg
CPT/HCPCS: 99202; G0463

== ENCOUNTER 2020-12-02 11:25 | Day surgery (SDC) | payer OTHER, SELFPAY ==
[2020-12-02 12:15] VITALS: BP 92/61; PULSE 86; RESP 18; TEMP 36.4; O2SAT 97; BMI 32.8
[2020-12-02 14:06] VITALS: BP 95/58; PULSE 68; RESP 18; O2SAT 97
[2020-12-02 14:07] VITALS: BP 98/60; PULSE 61; RESP 18; O2SAT 97
[2020-12-02 14:49] VITALS: BP 96/58; PULSE 70; RESP 18; O2SAT 97
--- NOTE | 2020-12-02 15:01 | HMH.PMPROC ---
- Procedure Date: 12/02/20 Time: 15:01 Anesthesiologist:: Martha Bender MD Complications:: None Pre-procedure Diagnosis:: Right sided sacroiliitis, chronic hip pain Post-procedure Diagnosis:: Same Indications for Procedure:: Patient is a very pleasant 50-year-old male who we're treating for chronic low back and hip pain related to the above diagnosis. He has trialed conservative treatment including oral pain medication as well as home exercise program with minimal relief. The plan for today is for him to undergo right-sided lumbar epidural steroid injection. Procedure Details:: Right SI joint injection under fluoroscopy Informed consent was obtained and the risks and benefits of the procedure was going to the patient. Patient was taken to the procedure room. Patient was placed prone on the procedure table. The right hip was prepped using ChloraPrep. The skin and subcutaneous tissues were anesthetized using lidocaine. I placed a 22-gauge spinal needle into the inferior aspect of the right SI joint. Needle placement was confirmed with dye. After this we injected 5 mL bupivacaine 0.25% and Depo-Medrol 40 mg into the right SI joint. The patient tolerated the procedure well with no complication. Plan and Disposition:: Follow-up with this patient in 2 weeks. Will reevaluate pain symptoms at that time. Of note, this patient has undergone surgery for her right lower extremity fracture has been complicated by significant pain with autonomic changes of color and temperature changes to his right lower extremity and foot. He is currently on Orange 5/325 mg 1 tablet p.o. twice daily as well as Lyrica. He reports this gives him some pain relief. Also having left testicular pain which is managed by Dr. Goldberg. We have discussed with the patient regarding possible DRG therapy in the future for his right lower extremity pain and autonomic changes if this injection therapy does not give him relief.
== END 2020-12-02 14:50 | disposition home or self-care (01) ==
LOC: SC.PAINP 11:27
PROVIDERS: PCP Nurse Practitioner; Visit Provider Anesthesiology Pain Medicine
DX: M46.1 Sacroiliitis, not elsewhere classified (principal); G89.29 Other chronic pain; I10 Essential (primary) hypertension; E78.5 Hyperlipidemia, unspecified; K21.9 Gastro-esophageal reflux disease without esophagitis; M19.90 Unspecified osteoarthritis, unspecified site; E11.9 Type 2 diabetes mellitus without complications; F41.9 Anxiety disorder, unspecified; Z72.0 Tobacco use
CPT/HCPCS: 27096; G0260; J1040; Q9966

== ENCOUNTER → 2020-12-26 09:09 | Outpatient (POV) | payer OTHER, SELFPAY ==
[2020-12-26 09:27] VITALS: BP 146/81; PULSE 73; RESP 18; O2SAT 97; BMI 32.2
--- NOTE | 2020-12-26 09:34 | HMH.PAINSOAP ---
[facility] Pain Management SOAP Note Subjective:: Patient is a 50-year-old white male who presents today for follow-up after right SI injection #1. Patient is being treated for sacroiliitis. He is having low back pain with radicular pain into bilateral hips. Patient was referred to orthopedics. He was told at orthopedics that he will likely need to undergo a right hip replacement. He was given bilateral intra-articular hip injections with no relief. Patient also says he got no relief with the SI injection. His pain is a 10 out of 10 today. He is managed with [place] 5 mg 1 tablet p.o. 3 times twice daily and Lyrica per his primary care provider. He is in excruciating pain today. He understands we will not be able to give him any other medications that he is currently on unfortunately. The injections are not given him any relief. He has not had any imaging of his lumbar spine. His pain was previously in his low back and bilateral hips, however, since the injection he is now having pain radicular into the right leg. He says it is from the right low back to the right foot. He is having heaviness and weakness in the right foot as well as paresthesia. He has continued with home stretching and is currently in physical therapy with no significant relief. He will continue with physical therapy to the best of his ability. He has also tried anti-inflammatories with no relief. We did discuss imaging of his lumbar spine. This was also recommended by orthopedics. We will send him for an MRI of his lumbar spine. Review of Systems General: No recent weight changes, no fever, no sleep disturbances Respiratory: No cough, no shortness of air, no recurring pulmonary infections Cardiovascular/peripheral vascular: No chest pain, no palpitations, no edema, no shortness of breath Gastrointestinal: No new onset incontinence, normal bowel movements reported Genitourinary: No new onset incontinence Musculoskeletal: Low back pain with radicular pain into bilateral hips and right lower extremity Psychiatric: Normal mood/affect Neurological: Weakness right lower extremity Objective:: Physical exam General: Alert and oriented x3, no acute distress, pleasant and cooperative, [on room air] Lungs: Respirations even and unlabored, symmetrical chest expansion Eyes: PERRL Musculoskeletal: Flexion and extension of [] lumbar spine somewhat guarded secondary to pain, deep tendon reflexes normal, strength in upper and lower extremities [5/5], [abnormal gait noted] Neurological: Speech clear, paper products inspector equal, no gross sensory deficit Assessment:: Low back pain, bilateral hip pain, right leg pain with paresthesia Plan:: We will send the patient for an MRI of his lumbar spine. He will continue with anti-inflammatories and home stretching. He will also continue with his physical therapy at this time. Physical therapy does not seem to be giving him much relief at this time. We will see him back after the MRI to discuss a further plan of care. Patient has been instructed to contact the clinic with any concerns before the next appointment. Dr. Landaverde has reviewed this note and agrees with this plan of care. This note was dictated using voice recognition software and make contain errors or omissions. [facility] History I have reviewed the patient's past medical history: Yes Medical History: Reports:: Anxiety, Gastroesophageal Reflux Disease(GERD), Hyperlipidemia, Hypertension Denies:: Cancer, Diabetes Mellitus Type 1, Diabetes Mellitus Type 2, Internal Pacemaker, MRSA, Seizures *Have you ever received a pneumonia vaccine?: No *Have you received a flu vaccine this season?: No Other Medical History: Reports: Arthritis. Denies: Blood Transfusion Reaction Laterality Cases: Right: Other, Bilateral: Tonsillectomy Other Surgeries: Yes: No Previous Surgery, Other. No: Pacemaker Amputation: No Fractures: Yes (right ankle fx with hardware placement, hardware removed a yea
== END ==
PROVIDERS: PCP Nurse Practitioner; Visit Provider Clinical Nurse Specialist Family Health
DX: M54.5 Low back pain (principal); M25.551 Pain in right hip; M25.552 Pain in left hip; M79.604 Pain in right leg; R20.2 Paresthesia of skin
CPT/HCPCS: 99212; G0463

== ENCOUNTER → 2021-01-04 08:25 | Outpatient (CLI) | payer OTHER, SELFPAY ==
--- NOTE | 2021-01-04 08:29 | MR_ITS ---
PROCEDURE: MR LUMBAR SPINE WO CON CLINICAL INDICATION: LBP Chronic low back pain radiating down right leg COMPARISON: No exams were available for comparison TECHNIQUE: Standard multiplanar multiecho sequences are performed without contrast. 3-D MIP and myelographic images are also rendered and reviewed FINDINGS: The spinal cord ends at the L1-L2 level. There is good alignment. T12-L1: Mild degenerative disc disease. L1-L2: Mild degenerative disc disease. Minimal bulging disc. Mild facet and ligamentum hypertrophic change. The bulging disc is slightly eccentric toward the right with 2 mm retrolisthesis of L1. L2-L3: Mild facet and ligamentum hypertrophic change. L3-L4: Mild facet and ligamentum hypertrophic change with mild bilateral lateral recess narrowing and minimal bulging disc. L4-5: Minimal bulging disc with mild facet and ligamentum hypertrophy. There is mild left lateral recess narrowing L5-S1: Mild facet and ligamentum hypertrophy IMPRESSION: Mild multilevel lumbar spondylosis. Please see above for detailed description at each level. No extruded disc herniation. No bony canal stenosis. Dictated by: Valdemar Quintana MD 01/04/2021 17:43 Valdemar Quintana MD in [place] 01/04/2021 17:43
== END ==
PROVIDERS: PCP Nurse Practitioner; Visit Provider Clinical Nurse Specialist Family Health
DX: M54.5 Low back pain (principal)
CPT/HCPCS: 72148; 76376

== ENCOUNTER 2021-01-06 19:31 | Emergency (ER) | payer OTHER, SELFPAY ==
[2021-01-06 19:32] VITALS: BP 127/78; PULSE 91; RESP 16; TEMP 36.9; O2SAT 96; BMI 32.2
--- NOTE | 2021-01-06 20:30 | HMH.EDGENADL ---
ED Disposition Clinical Impression: Muscle cramps at night Joint pain Qualifiers: Joint pain location: unspecified Qualified Code(s): M25.50 - Pain in unspecified joint Disposition: Home, Self-Care Condition on Discharge: Good Instructions: DI for Nocturnal Leg Cramps, Stretching Routine Before Bedtime May Decrease Nighttime Leg Cramps, DI for Arthralgia Additional Instructions: You have been evaluated for muscle cramps and joint pain. Please take multivitamin daily. Take naproxen twice daily. Try home remedies like quinine, stretching, exercise. Follow-up with your primary care doctor as soon as available. Return to the emergency department at once for any new or worsening symptoms, fevers, weakness, headache, neck pain, any other concerns. Prescriptions: Multivitamin 1 each PO DAILY #30 tab Transmission Status: Pending to [id number] Naproxen [Naproxen 500mg tab] 500 mg PO BID #30 tab Transmission Status: Pending to [id number] Referrals: Blanche Hu APRN [Primary Care Provider] - Time of Disposition: 21:49 - Critical Care Critical Care Time: No Attestation: On 01/06/21, the high probability of a clinically significant, sudden or life threatening deterioration of the following system(s) required my full and direct attention, intervention and personal management. The time I documented below is in addition to time spent performing reported procedures but includes the following listed in this critical care notation. Medical Decision Making - Medical Records Medical records reviewed: Yes: I reviewed the patient's medical records. - Fahad Inquiry Pt receiving controlled substance: No Vital Signs: 01/06/21 19:32 Temperature 98.4 F Temperature Source Oral Pulse Rate [Right] 91 H Respiratory Rate 16 Blood Pressure [Right Arm] 127/78 Blood Pressure Mean [Right Arm] 94 02 Sat by Pulse Oximetry 96 - Lab Data Lab Results 01/06/21 20:25: WBC 10.4, RBC 4.93, Hgb 13.8 L, Hct 40.9 L, MCV 82.9, MCH 28.0, MCHC 33.8, RDW 13.9, Plt Count 235, MPV 8.5, Neut % (Auto) 60.9, Lymph % (Auto) 32.6, [place] % (Auto) 3.3, Eos % (Auto) 2.6, Baso % (Auto) 0.6, Neut # (Auto) 6.3, Lymph # (Auto) 3.4, [place] # (Auto) 0.3, Eos # (Auto) 0.3, Baso # (Auto) 0.1 01/06/21 20:25: Sodium 137, Potassium 4.6, Chloride 103, Carbon Dioxide 24, Anion Gap 14.6, BUN 17, Creatinine 0.70, Estimated Creat Clear 212, Estimated GFR 119, Est GFR ( Amer) 144, Glucose 210 H, Calcium 9.1, Phosphorus 3.1, Magnesium 1.2 L, Total Bilirubin 0.6, AST 34, ALT 41, Alkaline Phosphatase 37 L, Total Creatine Kinase 167, Total Protein 7.3, Albumin 4.4, Globulin 2.9, Albumin/Globulin Ratio 1.5 Result diagrams: 01/06/21 20:25 01/06/21 20:25 Orders (Tests/Meds): ED MEDICATIONS Discontinued Medications Generic Name Dose Route Start Last Admin Trade Name Freq PRN Reason Stop Dose Admin Naproxen 500 mg 01/06/21 21:19 01/06/21 21:36 Naproxen 500mg Tablet PO 01/06/21 21:20 500 mg ONCE ONE Administration ORDERS Category Date Time Status Urinalysis and Microscopic Stat Lab 01/06/21 20:30 Ordered ECG Request by /Raymundo Stat Y 01/06/21 20:30 Ordered Medical Decision Narrative: In summary this is a 50-year-old male presenting to the emergency department with muscle aches and muscle cramps. Patient clinically stable on arrival. Vital signs within normal limits. Differential diagnoses include electrolyte derangements, hypokalemia, hypomagnesemia, renal insufficiency, arthritis. Will obtain CBC, CMP, magnesium level, phosphorus level. Patient given Naproxen and oral fluids. Patient is scheduled for a cardiac stress test this week at [facility]. Initial laboratory results are reassuring. No leukocytosis. No anemia. No renal insufficiency. No derangement of potassium or sodium. Patient's magnesium is low. Recommended supplement, multivitamin. Otherwise, no clear cause
[2021-01-06 20:38] LABS: Basophils # 0.1 K/mm3 (0-0.2); Basophils % 0.6 % (0.1-2.0); Eosinophils # 0.3 K/mm3 (0.0-0.4); Eosinophils % 2.6 % (0.1-12.0); Hematocrit 40.9 % (42.0-52.0); Hemoglobin 13.8 g/dL (14.1-18.0); Lymphocytes # 3.4 K/mm3 (0.7-4.5); Lymphocytes % 32.6 % (10-50); Mean Corpuscular HGB Conc 33.8 g/dL (31.8-35.4); Mean Corpuscular Volume 82.9 fl (80-94); Mean Platelet Volume 8.5 fl (7.4-10.4); Monocytes # 0.3 K/mm3 (0.1-1.0); Monocytes % 3.3 % (1.7-9.3); Neutrophils # 6.3 K/mm3 (1.8-7.8); Neutrophils % 60.9 % (37.0-80.0); Platelet Count 235 K/mm3 (142-424); Red Blood Count 4.93 M/mm3 (4.60-6.20); Red Cell Distribution Width 13.9 % (11.5-17.5); White Blood Count 10.4 K/mm3 (4.8-10.8)
[2021-01-06 20:43] LABS: Alanine Aminotransferase 41 U/L (12-78); Albumin Level 4.4 g/dl (3.5-5.0); Albumin/Globulin Ratio 1.5 (1.1-1.8); Alkaline Phosphatase 37 U/L (38-126); Anion Gap 14.6 mEq/L (5-15); Aspartate Amino Transferase 34 U/L (17-59); Bilirubin,Total 0.6 mg/dl (0.2-1.3); Blood Urea Nitrogen 17 mg/dl (9-20); Calcium 9.1 mg/dl (8.4-10.2); Carbon Dioxide 24 mmol/L (22.0-30.0); Chloride 103 mmol/L (98-107); Creatine Kinase 167 U/L (55-170); Creatinine Clearance Estimated 212 mL/min (50-200); Estimated Glomerular Filt Rate 119 ml/min (>60); GFR (African American) 144 ML/MIN (>60); Globulin 2.9 g/dL (1.3-3.2); Glucose 210 mg/dl (74-100); Magnesium 1.2 mg/dl (1.6-2.3); Phosphorous 3.1 mg/dl (2.5-4.5); Potassium 4.6 mmoL/L (3.5-5.1); Sodium 137 mmol/L (136-145); Total Protein,Serum 7.3 g/dl (6.3-8.2)
--- NOTE | 2021-01-06 21:25 | ECG_ITS ---
APPROVED REPORT Exam: Resting ECG HR:75 bpm ECG Measurements Heart Rate [address] 138 P 43 QRSd 78 QRS 1 QT 372 T 37 QTc 415 Conclusion Normal sinus rhythm Normal ECG Electronically signed by : Karson Bonner, 01/08/2021 20:59:12
--- NOTE | 2021-01-06 21:29 | PC.NURSE ---
Pt refused covid swab, reporting he had a covid swab at [facility] 2 days ago that was negative. MD Carlos aware.
[2021-01-06 22:06] VITALS: BP 112/71; PULSE 73; RESP 17; TEMP 36.7; O2SAT 98
== END 2021-01-06 22:10 | disposition home or self-care (01) ==
PROVIDERS: Emergency Medicine; Emergency Provider Family Medicine; PCP Nurse Practitioner
DX: M25.542 Pain in joints of left hand (principal); M25.541 Pain in joints of right hand; R25.2 Cramp and spasm; E11.9 Type 2 diabetes mellitus without complications; F41.8 Other specified anxiety disorders; K21.9 Gastro-esophageal reflux disease without esophagitis; I10 Essential (primary) hypertension; E78.5 Hyperlipidemia, unspecified; F17.210 Nicotine dependence, cigarettes, uncomplicated; Z79.899 Other long term (current) drug therapy
CPT/HCPCS: 80053; 82550; 83735; 84100; 85025; 93005; 99283

== ENCOUNTER → 2021-01-26 10:35 | Outpatient (POV) | payer OTHER, SELFPAY ==
[2021-01-26 10:49] VITALS: BP 136/69; PULSE 77; RESP 18; O2SAT 97; BMI 32.2
--- NOTE | 2021-01-26 12:55 | HMH.PAINSOAP ---
[facility] Pain Management SOAP Note Subjective:: Patient is a 50-year-old white male who presents today for follow. He is here today to review his MRI results. The patient is being treated in the clinic for right low back pain as well as right lower extremity pain. Patient does have right hip pain as well. He was referred to orthopedics and was told that he would likely need to undergo a right hip replacement, however, due to his age they have postpone any type of surgery, however. He did undergo right intra-articular hip injections with no relief, as well as right SI injections with no relief. The patient's pain is constant in nature and does not lessen or worsen with movement. The patient has been managed in the past with [place] and Lyrica by his primary care provider, however, is no longer getting these medications. He was given tramadol by our clinic in the past which gave him some relief but only minimal relief. The patient says that orthopedics did encourage the patient to discuss possible neurosurgical evaluation for his low back pain and right lower extremity pain. Patient has had a right ankle fracture and says that this occurred 2 years ago. He continues to experience severe pain in his right lower extremity. 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 He also has jerking sensation of his lower extremities throughout the day as well as cramping in his hands and low back. Patient says that he does need something for pain management. I have discussed with the patient as well as his significant other that we are not able to provide him with continued opiates, however, we can give him a month of tramadol to see if this does give him some short-term relief. He has requested a neurosurgical evaluation. His MRI will be discussed today. We also discussed increasing his Lyrica.. This was prescribed by Dr. Anthony Galaviz in the past, however, he has stopped prescribing the medication to the patient. Patient has tried physical therapy for greater than 6 weeks in the past and continues with home stretching as well as ice and heat therapies. Anti-inflammatories do not help the patient. He is currently taking diclofenac. Review of Systems General: No recent weight changes, no fever, no sleep disturbances Respiratory: No cough, no shortness of air, no recurring pulmonary infections Cardiovascular/peripheral vascular: No chest pain, no palpitations, no edema, no shortness of breath Gastrointestinal: No new onset incontinence, normal bowel movements reported Genitourinary: No new onset incontinence Musculoskeletal: [] Psychiatric: [Normal mood/affect] Neurological: [Denies weakness in extremities], [denies balance issues] Objective:: Physical exam General: Alert and oriented x3, no acute distress, pleasant and cooperative, [on room air] Lungs: Respirations even and unlabored, symmetrical chest expansion Eyes: PERRL Musculoskeletal: Flexion and extension of [] lumbar [spine] somewhat guarded secondary to pain, strength in upper and lower extremities [5/5], [antalgic gait noted] Neurological: Speech clear, [physician chief of pathology equal], no gross sensory deficit Assessment:: Degenerative disc disease lumbar spine with lumbar radiculopathy symptoms, CRPS type I right lower extremity Plan:: We will give the patient 1 month of tramadol 50 mg 1 tablet p.o. 3 times daily. We will also continue the patient's Lyrica 100 mg 1 tablet p.o. 3 times daily. We discussed a lumbar epidural steroid injection at L4-L5 for his continued pain in his low back and right lower extremity. Today, the patient I as well as his significant other discussed possible spinal cord stimulation. The patient does not have any significant pathology per his MRI report to correlate with a neurosurgical evaluation, however, they would like a consult. We will send a neurosurgical evaluation. Patient has been advised that he will likely not be
== END ==
PROVIDERS: Visit Provider Clinical Nurse Specialist Family Health
DX: M51.16 Intervertebral disc disorders with radiculopathy, lumbar region (principal); G90.521 Complex regional pain syndrome I of right lower limb
CPT/HCPCS: 99212; G0463

== ENCOUNTER 2021-02-03 10:09 | Day surgery (SDC) | payer OTHER, SELFPAY ==
[2021-02-03 10:26] VITALS: BP 117/67; PULSE 78; RESP 18; TEMP 36.4; O2SAT 98; BMI 32.2
[2021-02-03 10:44] VITALS: BP 146/78; PULSE 77; RESP 18; O2SAT 95
[2021-02-03 10:47] VITALS: BP 139/86; PULSE 83; RESP 18; O2SAT 95
--- NOTE | 2021-02-03 10:51 | P.PCN_ITS ---
- Procedure Date: 02/03/21 Time: 10:51 Anesthesiologist:: Martha Bender MD Complications:: None Pre-procedure Diagnosis:: Degenerative disc disease of the lumbar spine, lumbar radiculopathy Post-procedure Diagnosis:: Same Indications for Procedure:: Patient is a very pleasant 50-year-old white male who presents today with chronic low back pain radiating to his legs related to the above diagnosis. He is also referred to orthopedics and was told he likely will need a right hip replacement; however due to his age they have decided to postpone any type of surgery. He previously underwent intra-articular hip injections with no relief as well as right-sided SI joint injections with no relief. He history of a right ankle fracture that occurred 2 years ago and subsequently continues to experience right lower extremity pain. 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 He is currently taking tramadol as prescribed by our clinic. The plan for today is for the patient to undergo a lumbar epidural steroid injection at L4-L5 #1 under fluoroscopy Procedure Details:: Informed consent was obtained and the risk and benefits of the procedure was explained to the patient. The patient was taken to the procedure room. The patient was placed prone on the procedure table. The patient was prepped and draped in sterile fashion. C-arm fluoroscopy was used to view the lumbar spine. Skin and subcutaneous tissues were anesthetized using lidocaine. I placed an 18-gauge epidural needle and advanced into the L4-L5 interspace using f luoroscopic guidance and took-[id number] to air and saline. After confirmation of needle placement in the epidural space with dye I injected 1 mL of lidocaine 1.0% with Depo-Medrol 80 mg. Patient tolerated the procedure well with no complications. Plan and Disposition:: We will follow-up with this patient in 2 weeks. Will reevaluate pain symptoms at that time.
[2021-02-03 10:57] VITALS: BP 110/64; PULSE 76; RESP 20; O2SAT 98
== END 2021-02-03 10:58 | disposition home or self-care (01) ==
LOC: SC.PAINP 10:10
PROVIDERS: Visit Provider Anesthesiology Pain Medicine
DX: M51.16 Intervertebral disc disorders with radiculopathy, lumbar region (principal); E78.5 Hyperlipidemia, unspecified; I10 Essential (primary) hypertension; K21.9 Gastro-esophageal reflux disease without esophagitis; M19.90 Unspecified osteoarthritis, unspecified site; F41.9 Anxiety disorder, unspecified; Z72.0 Tobacco use; G43.909 Migraine, unspecified, not intractable, without status migrainosus
CPT/HCPCS: 62323; J1040; Q9966

== ENCOUNTER → 2021-03-09 09:13 | Outpatient (POV) | payer OTHER, SELFPAY ==
[2021-03-09 09:30] VITALS: BP 161/90; PULSE 76; RESP 18; O2SAT 99; BMI 31.6
--- NOTE | 2021-03-09 10:06 | HMH.PAINSOAP ---
[facility] Pain Management SOAP Note Subjective:: Patient is a 50-year-old white male who presents today for follow-up after lumbar epidural steroid injection. He is being treated in our clinic for chronic low back pain with hip pain as well as right ankle pain. The patient says he got no relief with the injection. He rates his pain an 8 out of 10 today. He is also managed with tramadol and Lyrica in our clinic. Patient did see orthopedics and has been advised that he will likely need to undergo right hip replacement, however, due to age they have asked to postpone surgery. He was also referred to neurosurgical team for worsening low back pain. The patient says that he is scheduled to see neurosurgery in 2 weeks. He has not gotten any relief with the therapies provided in the clinic. He has had intra-articular hip injections as well as right-sided SI injection with no relief. The patient's pain is primarily in his low back with radiation into the right hip and into the right ankle and leg. He says the pain is constant and is not relieved with medications or with interventional treatments. Review of Systems General: No recent weight changes, no fever, no sleep disturbances Respiratory: No cough, no shortness of air, no recurring pulmonary infections Cardiovascular/peripheral vascular: No chest pain, no palpitations, no edema, no shortness of breath Gastrointestinal: No new onset incontinence, normal bowel movements reported Genitourinary: No new onset incontinence Musculoskeletal: Low back pain with radiation into right hip and right leg, right ankle pain Psychiatric: [Normal mood/affect] Neurological: [Denies weakness in extremities], [denies balance issues] Objective:: Physical exam General: Alert and oriented x3, no acute distress, pleasant and cooperative, [on room air] Lungs: Respirations even and unlabored, symmetrical chest expansion Eyes: PERRL Musculoskeletal: Flexion and extension of lumbar [spine] and right lower extremity somewhat guarded secondary to pain, strength in upper and lower extremities [5/5], [antalgic gait noted] Neurological: Speech clear, [ginseng farmer equal], no gross sensory deficit Assessment:: Degenerative disc disease lumbar spine with lumbar radiculopathy symptoms, CRPS type I right ankle Plan:: Patient has not gotten any relief with injective therapy. He is scheduled to see neurosurgery in 2 weeks. The patient is interested in intrathecal therapy. We will schedule the patient for psychological evaluation for intrathecal therapy versus spinal cord stimulation. Both devices were discussed with the patient. Given that the patient does have a history of a right ankle fracture that occurred more than 2 years ago, the patient would likely benefit from a spinal cord stimulator. He does, however, have neck pain as well. He would like to discuss options with Dr. Landaverde before proceeding with any type of trial. He does understand he would need to undergo psychological evaluation. The patient is currently on tramadol 50 mg 1 tablet p.o. 3 times daily and Lyrica 100 mg 1 tablet p.o. twice daily. We will continue these medications and see him back after his psychological evaluation and after his appointment with neurosurgery. The patient was given educational information today regarding both devices. Risks and benefits of the medication have been explained in detail to the patient. If side effects do present with the medication, she has been advised to stop the medication immediately and call the clinic. The patient has been advised to consult with his/her primary care provider and pharmacist regarding drug-drug interaction of medications currently prescribed. [facility] History I have reviewed the patient's past medical history: Yes Medical History: Reports:: Anxiety, Diabetes Mellitus Type 2, Gastroesophageal Reflux Disease(GERD), Hyperlipidemia, Hypertension Denies:: Cancer, Diabetes Mellitus Type 1, Int
== END ==
PROVIDERS: Visit Provider Clinical Nurse Specialist Family Health
DX: M51.16 Intervertebral disc disorders with radiculopathy, lumbar region (principal); G90.521 Complex regional pain syndrome I of right lower limb
CPT/HCPCS: 99212; G0463

== ENCOUNTER 2021-05-18 02:31 | Emergency (ER) | payer OTHER, SELFPAY ==
[2021-05-18 02:33] VITALS: BP 115/77; PULSE 89; RESP 16; TEMP 36.4; O2SAT 97; BMI 31.6
--- NOTE | 2021-05-18 02:53 | XR_ITS ---
PROCEDURE INFORMATION: Exam: XR Right Ankle Exam date and time: 05/18/2021 2:53 AM Age: 50 years old Clinical indication: Patient HX: PT states fell 05/17/21 in the evening, twisting ankle. C/O right ankle pain. Redness & swelling to lle; Additional info: Injury TECHNIQUE: Imaging protocol: XR Right ankle. Views: 3 or more views. COMPARISON: CR XR ANKLE RT MIN 3V 10/13/2020 1:28 PM FINDINGS: Bones/joints: Probable postsurgical changes in the distal fibular containing multiple lucencies. Probable joint effusion. No evidence of acute fracture. Soft tissues: Significant soft tissue edema. IMPRESSION: 1. Significant soft tissue edema. 2. Probable joint effusion. 3. No evidence of acute fracture. If symptoms persist, recommend repeat radiograph in 5-7 days.
[2021-05-18 03:05] LABS: Basophils # 0.1 K/mm3 (0-0.2); Basophils % 0.8 % (0.1-2.0); Eosinophils # 0.4 K/mm3 (0.0-0.4); Eosinophils % 3.9 % (0.1-12.0); Hematocrit 41.1 % (42.0-52.0); Hemoglobin 13.9 g/dL (14.1-18.0); Lymphocytes # 3.1 K/mm3 (0.7-4.5); Lymphocytes % 31.2 % (10-50); Mean Corpuscular HGB Conc 33.8 g/dL (31.8-35.4); Mean Corpuscular Hemoglobin 29.2 pg (27.0-31.2); Mean Corpuscular Volume 86.5 fl (80-94); Monocytes # 0.4 K/mm3 (0.1-1.0); Monocytes % 4.2 % (1.7-9.3); Neutrophils # 5.9 K/mm3 (1.8-7.8); Neutrophils % 59.9 % (37.0-80.0); Platelet Count 277 K/mm3 (142-424); Red Blood Count 4.75 M/mm3 (4.60-6.20); Red Cell Distribution Width 13.9 % (11.5-17.5); White Blood Count 9.8 K/mm3 (4.8-10.8)
[2021-05-18 03:10] LABS: Alanine Aminotransferase 35 U/L (12-78); Albumin Level 4.5 g/dl (3.5-5.0); Albumin/Globulin Ratio 1.7 (1.1-1.8); Alkaline Phosphatase 37 U/L (38-126); Anion Gap 8.4 mEq/L (5-15); Aspartate Amino Transferase 37 U/L (17-59); Bilirubin,Total 0.5 mg/dl (0.2-1.3); Blood Urea Nitrogen 16 mg/dl (9-20); Calcium 9.3 mg/dl (8.4-10.2); Carbon Dioxide 28 mmol/L (22.0-30.0); Chloride 105 mmol/L (98-107); Creatinine Clearance Estimated 208 mL/min (50-200); Estimated Glomerular Filt Rate 119 ml/min (>60); GFR (African American) 144 ML/MIN (>60); Globulin 2.7 g/dL (1.3-3.2); Glucose 123 mg/dl (74-100); Potassium 4.4 mmoL/L (3.5-5.1); Sodium 137 mmol/L (136-145); Total Protein,Serum 7.2 g/dl (6.3-8.2)
[2021-05-18 03:15] LABS: C-Reactive Protein 5.4 mg/L (0-4)
[2021-05-18 03:29] LABS: Procalcitonin 0.065 ng/mL (0.0-2.0)
[2021-05-18 03:32] LABS: Erythrocyte Sedimentation Rate 12 mm/hr (0-20)
--- NOTE | 2021-05-18 04:33 | HMH.EDLOEX ---
ED Disposition Clinical Impression: Ankle sprain and strain Cellulitis Qualifiers: Site of cellulitis: extremity Site of cellulitis of extremity: lower extremity Laterality: right Qualified Code(s): L03.115 - Cellulitis of right lower limb Disposition: Home, Self-Care Condition on Discharge: Good Instructions: DI for Ankle Sprain Additional Instructions: use meds and see pcp for follow up and also see dr lamar Prescriptions: cephALEXin [cephALEXin 500mg capsule*] 500 mg PO TID #30 cap Transmission Status: Pending to [facility] clindamycin HCL [Clindamycin HCl] 300 mg PO TID #30 cap Transmission Status: Pending to [facility] Referrals: Blanche Hu APRN [Primary Care Provider] - Lauren Lamar DPM [Staff Physician] - - Critical Care Critical Care Time: No Attestation: On 05/18/21, the high probability of a clinically significant, sudden or life threatening deterioration of the following system(s) required my full and direct attention, intervention and personal management. The time I documented below is in addition to time spent performing reported procedures but includes the following listed in this critical care notation. Medical Decision Making - Medical Records Medical records reviewed: Yes: I reviewed the patient's medical records. - [place] Inquiry Pt receiving controlled substance: No Vital Signs: 05/18/21 02:33 Temperature 97.6 F Temperature Source Oral Pulse Rate [Right Radial] 89 Respiratory Rate 16 Blood Pressure [Right Arm] 115/77 Blood Pressure Mean [Right Arm] 89 Blood Pressure Source [Right Arm] Automatic Cuff Blood Pressure Position [Right Arm] Sitting 02 Sat by Pulse Oximetry 97 Oxygen Delivery Method Room Air - Lab Data Lab results reviewed: Yes: I reviewed the patient's lab results. Lab Results 05/18/21 02:53: WBC 9.8, RBC 4.75, Hgb 13.9 L, Hct 41.1 L, MCV 86.5, MCH 29.2, MCHC 33.8, RDW 13.9, Plt Count 277, MPV 8.0, Neut % (Auto) 59.9, Lymph % (Auto) 31.2, Desha % (Auto) 4.2, Eos % (Auto) 3.9, Baso % (Auto) 0.8, Neut # (Auto) 5.9, Lymph # (Auto) 3.1, Desha # (Auto) 0.4, Eos # (Auto) 0.4, Baso # (Auto) 0.1, ESR 12 05/18/21 02:53: Sodium 137, Potassium 4.4, Chloride 105, Carbon Dioxide 28, Anion Gap 8.4, BUN 16, Creatinine 0.70, Estimated Creat Clear 208, Estimated GFR 119, Est GFR ( Amer) 144, Glucose 123 H, Calcium 9.3, Total Bilirubin 0.5, AST 37, ALT 35, Alkaline Phosphatase 37 L, C-Reactive Protein 5.4 H, Total Protein 7.2, Albumin 4.5, Globulin 2.7, Albumin/Globulin Ratio 1.7, Procalcitonin 0.065 Result diagrams: 05/18/21 02:53 05/18/21 02:53 Orders (Tests/Meds): ED MEDICATIONS Discontinued Medications Generic Name Dose Route Start Last Admin Trade Name Freq PRN Reason Stop Dose Admin Ketorolac Tromethamine 30 mg 05/18/21 02:54 05/18/21 02:59 Ketorolac 30mg/Ml Vial IV 05/18/21 02:55 30 mg ONCE ONE Administration - Radiology Data #1 Image(s): Ankle Image Reviewed: Yes I have reviewed radiologist's interpretation Preliminary Findings: Abnormal, No Fracture Seen Medical Decision Narrative: pt has had prev sts injury to rt ankle - no def fx seen and has leg edema with cellulitis - which has been reported also - no clinical evid of dvt and has had neg doppler in past Lower Extremity Injury HPI - General Chief Complaint: Extremity Injury, Lower Stated Complaint: right leg swollen and red Time Seen by Provider: 05/18/21 03:00 Mode of Arrival: Ambulatory Source of Information: Patient, Medical Record Limitations: No Limitations Description of Symptoms (Recalled from ER Triage Doc. 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 He says he just cant take it anymore . Pt was ambulatory into ER. RLE is warm to touch with errythema. - History of Present Illness HPI Narrative: pt reports acute injury tonight to his rt ankle with pain and swelling - has had pr
[2021-05-18 04:48] VITALS: BP 117/79; PULSE 88; RESP 20; TEMP 37.1; O2SAT 98
== END 2021-05-18 04:57 | disposition home or self-care (01) ==
PROVIDERS: Emergency Provider Emergency Medicine; PCP Nurse Practitioner
DX: L03.115 Cellulitis of right lower limb (principal); S93.401A Sprain of unspecified ligament of right ankle, initial encounter; X50.1XXA Overexertion from prolonged static or awkward postures, initial encounter; Y92.71 Barn as the place of occurrence of the external cause; E11.9 Type 2 diabetes mellitus without complications; E78.5 Hyperlipidemia, unspecified; I10 Essential (primary) hypertension; K21.9 Gastro-esophageal reflux disease without esophagitis; F17.210 Nicotine dependence, cigarettes, uncomplicated
CPT/HCPCS: 73610; 80053; 84145; 85025; 85651; 86140; 99282

== ENCOUNTER → 2021-06-27 10:04 | Outpatient (POV) | payer OTHER, SELFPAY ==
[2021-06-27 10:17] VITALS: BP 155/86; PULSE 85; RESP 18; O2SAT 98; BMI 31.6
--- NOTE | 2021-06-27 10:23 | HMH.PAINSOAP ---
[facility] Pain Management SOAP Note Subjective:: Patient is a 51-year-old white male who presents today for follow-up. The patient is being worked up for possible intrathecal therapy. He was seen in the clinic in the past and did undergo injective therapy with minimal relief. He does have bilateral low back pain with radiation into hips and right ankle pain. He has gotten no relief with conservative therapies which include physical therapy for more than 6 weeks and home stretching. He is also not gotten relief with injective therapy. He did see orthopedics and has been advised he will likely need to undergo a right hip replacement, however, has not been scheduled at this time. He was also referred to neurosurgery, however, the patient is unsure if he has seen neurosurgery at this point. He has had intra-articular hip injections as well as SI injections with minimal relief as well. He would like to proceed with possible intrathecal therapy. He has been advised today that the intrathecal therapy will not provide much relief for the hip pain versus ankle pain. He and I did discuss he may be a better candidate for spinal cord stimulation. He does rate his pain an 8 out of 10 today. Patient does that his pain is worse in the low back area. Standing, walking, and sitting do worsen the pain. He denies any bowel or bladder changes. He is currently on Lyrica. He does have a history of alcohol abuse placing him at moderate risk with ORT. Review of Systems General: No recent weight changes, no fever, no sleep disturbances Respiratory: No cough, no shortness of air, no recurring pulmonary infections Cardiovascular/peripheral vascular: No chest pain, no palpitations, no edema, no shortness of breath Gastrointestinal: No new onset incontinence, normal bowel movements reported Genitourinary: No new onset incontinence Musculoskeletal: [] Low back pain with radiation into right hip and right ankle Psychiatric: [Normal mood/affect] Neurological: [Denies weakness in extremities], [denies balance issues] Objective:: Physical exam General: Alert and oriented x3, no acute distress, pleasant and cooperative Lungs: Respirations even and unlabored, symmetrical chest expansion Eyes: PERRL Musculoskeletal: Flexion and extension of lumbar [spine] somewhat guarded secondary to pain, [antalgic gait noted] Neurological: Speech clear, no gross sensory deficit Assessment:: Degenerative disc disease lumbar spine with lumbar radiculopathy symptoms, right ankle pain, right hip pain Plan:: We will schedule the patient for psychological evaluation to determine if he is an appropriate candidate for intrathecal therapy versus spinal cord stimulation. He does have a history of alcohol abuse in the past. He is currently taking Lyrica. He is tried tramadol with minimal relief. He is also being given Tylenol with codeine per DrRubens 6 tablets. He has tried conservative therapies and has got minimal relief. We will see him back in the clinic after psychological evaluation to discuss a further plan of care. Patient has been instructed to contact the clinic with any concerns before the next appointment. Dr. Landaverde has reviewed this note and agrees with this plan of care. This note was dictated using voice recognition software and make contain errors or omissions. She [facility] History I have reviewed the patient's past medical history: Yes Medical History: Reports:: Anxiety, Diabetes Mellitus Type 2, Gastroesophageal Reflux Disease(GERD), Hyperlipidemia, Hypertension Denies:: Cancer, Diabetes Mellitus Type 1, Internal Pacemaker, MRSA, Seizures *Have you ever received a pneumonia vaccine?: No *Have you received a flu vaccine this season?: No Other Medical History: Reports: Arthritis. Denies: Blood Transfusion Reaction Laterality Cases: Right: Other, Bilateral: Tonsillectomy Other Surgeries: Yes: No Previous Surgery, Other. No: Pacemaker Amputation: No Fractures
== END ==
PROVIDERS: Visit Provider Clinical Nurse Specialist Family Health
DX: M51.16 Intervertebral disc disorders with radiculopathy, lumbar region (principal); M25.571 Pain in right ankle and joints of right foot; M25.551 Pain in right hip
CPT/HCPCS: 99212; G0463

== ENCOUNTER → 2021-07-11 15:08 | Outpatient (CLI) | payer OTHER, SELFPAY ==
--- NOTE | 2021-07-11 15:08 | CT_ITS ---
FINAL REPORT TECHNIQUE: Thin section axial CT images with coronal and sagittal reformats were performed. 3D volume rendered reconstruction images were performed on a separate workstation. This study was performed with techniques to keep radiation doses as low as reasonably achievable (ALARA). Individualized dose reduction techniques using automated exposure control or adjustment of mA and/or kV according to the patient's size were employed. CLINICAL HISTORY: Right ankle pain. COMPARISON: None. FINDINGS: There are moderate degenerative changes of the ankle mortise. There is a small cortical calcification along the medial talus, consistent with old avulsion injury. There are no calcified joint bodies. Tiny avulsion fracture fragments are identified along the tips of the medial and lateral malleoli. There is an old healed posterior malleolar fracture. IMPRESSION: Chronic posttraumatic changes. No evidence of calcified joint body. Reviewed, Interpreted and Dictated by Savana Ibrahim MD Transcribed by Yadira Billings PA-C Authenticated by Savana Ibrahim MD on 07/11/2021 04:40:40 PM [facility]
== END ==
PROVIDERS: PCP Nurse Practitioner; Visit Provider Podiatrist
DX: S93.401A Sprain of unspecified ligament of right ankle, initial encounter (principal); S96.911A Strain of unspecified muscle and tendon at ankle and foot level, right foot, initial encounter
CPT/HCPCS: 73700

== ENCOUNTER → 2021-08-07 11:09 | Outpatient (CLI) | payer OTHER, SELFPAY ==
[2021-08-07 11:50] LABS: Blood Urea Nitrogen 15 mg/dl (9-20); Estimated Glomerular Filt Rate 118 ml/min (>60); GFR (African American) 143 ML/MIN (>60)
--- NOTE | 2021-08-07 13:05 | MR_ITS ---
FINAL REPORT CLINICAL HISTORY: ankle pain. pt is a diabetic with medial sided ankle pain x2yrs. swelling in ankle. prior ct 07-11-21 23ml prohance given. FINDINGS: Multiplanar MR imaging of the right ankle was performed without and with contrast. The bony structures are intact without evidence of fracture, bone bruise or marrow edema. There are mild degenerative changes in the midfoot with subchondral cysts in the navicular. No osteochondral lesion is identified. The ligaments are intact without evidence of injury. There is mild posterior tibial and peroneal longus and brevis tenosynovitis. There is posterior plantar fasciitis with a small partial tear at its insertion. There is medial subcutaneous edema. There are foci of magnetic susceptibility in the distal fibula most likely postoperative. IMPRESSION: Mild degenerative changes in the midfoot with subchondral cyst in the navicular. Mild posterior tibial and peroneal is longus and brevis tenosynovitis. Posterior plantar fasciitis with small partial tear at its insertion. Reviewed, Interpreted and Dictated by Henok Hurst III, MD Transcribed by Jenny Coulter Authenticated by Henok Hurst III, MD on 08/07/2021 04:39:19 PM [facility]
--- NOTE | 2021-08-07 14:07 | US_ITS ---
FINAL REPORT CLINICAL HISTORY: Skin Changes, DM, HLD, HTN, SMOKER, CLAUDICATION, EDEMA AND PAIN X 2 YEARS SINCE ANKLE FX FINDINGS: ANKLE-BRACHIAL PRESSURE INDICES Pressure indices are as follows: RIGHT LOWER EXTREMITY: Ankle-brachial pressure index: 1.2 Comments: Normal LEFT LOWER EXTREMITY: Ankle-brachial pressure index: 1.1 Comments: Normal CONCLUSION: No evidence of significant obstructive peripheral vascular disease of the lower extremities Reviewed, Interpreted and Dictated by Henok Hurst III, MD Transcribed by April Wills Authenticated by Henok Hurst III, MD on 08/07/2021 04:39:18 PM [facility]
== END ==
PROVIDERS: PCP Nurse Practitioner; Visit Provider Podiatrist
DX: M19.171 Post-traumatic osteoarthritis, right ankle and foot (principal); M25.371 Other instability, right ankle; M25.571 Pain in right ankle and joints of right foot; S93.401A Sprain of unspecified ligament of right ankle, initial encounter; Z87.81 Personal history of (healed) traumatic fracture; Z98.890 Other specified postprocedural states; R09.89 Other specified symptoms and signs involving the circulatory and respiratory systems
CPT/HCPCS: 36415; 73723; 82565; 84520; 93923; A9576

== ENCOUNTER → 2021-08-22 16:19 | Outpatient (CLI) | payer OTHER, SELFPAY ==
--- NOTE | 2021-08-22 16:28 | MR_ITS ---
PROCEDURE INFORMATION: Exam: MR Right Lower Extremity Without Contrast, Tibia Fibula Exam date and time: 08/22/2021 4:28 PM Age: 51 years old Clinical indication: Pain; Ankle and lower leg; Right; Prior surgery; Additional info: Ankle pain. PT is a diabetic with medial sided ankle pain x2yrs. Swelling in ankle. Prior CT 07-11-21 TECHNIQUE: Imaging protocol: MR of the Right lower extremity without contrast. Exam focused on the tibia and fibula. COMPARISON: US ARTERIAL LOWER EXT REST 08/07/2021 2:50 PM FINDINGS: Bones/joints: The proximal-most tibia and fibula are not included here. No fracture or suspicious marrow signal in the remainder. Small focus of metallic artifact associated with distal fibula probably from previous intervention. Muscles: Unremarkable. Soft tissues: No visualized soft tissue injury. No mass or abnormal fluid collection. IMPRESSION: 1. The proximal-most tibia and fibula are not included here. No fracture or suspicious marrow signal in the remainder. 2. No visualized soft tissue injury. No mass or abnormal fluid collection.
== END ==
PROVIDERS: PCP Nurse Practitioner; Visit Provider Podiatrist
DX: M25.572 Pain in left ankle and joints of left foot (principal)

== ENCOUNTER → 2021-09-04 13:57 | Outpatient (POV) | payer OTHER, SELFPAY ==
[2021-09-04 14:37] VITALS: BP 127/79; PULSE 95; RESP 18; TEMP 37.1; O2SAT 98; BMI 32.8
--- NOTE | 2021-09-04 17:33 | HMH.PAINSOAP ---
[facility] Pain Management SOAP Note Subjective:: Patient is a pleasant 51-year-old male who presents today for follow-up. Patient is currently being treated for degenerative disc disease of the lumbar spine with lumbar radiculopathy symptoms, chronic right ankle pain, right hip pain. Patient currently has multiple factors that is affecting his pain. He is mainly concerned about his right ankle pain. He says that he fell about 2 years ago and fractured his tibia. He has had to pull surgeries on his right leg. Patient has been following Dr. Davis, public policy coordinator, who has done several interventions for his right leg with no relief. He states that the pain is mainly from his proximal tib/fib all the way to his right toes. He feels like something is squeezing his feet. He says that his right foot is always swollen, cold, and red compared to his left foot. He also states that he would wake up in the middle of the night with right foot pain. He has tried physical therapy and taking Lyrica 150mg BID with no help. He says that he is in constant pain of 9/10. He is also complaining of low back pain that radiates to bilateral extremities. He has tried and failed several conservative therapies such as oral medication, injective therapy, physical therapy and at home exercises with no relief of symptoms. He is also complaining of right hip pain. He has tried several intra-articular hip injection and SI injections with minimal relief. He says that he is seeing orthopedics for this and they discussed with him that he may need a right hip replacement. [facility] #[id number] with an active morphine equivalent of 0. Review of Systems: General: No recent weight changes, no fever, no sleep disturbances Respiratory: No cough, no shortness of air, no recurring pulmonary infections Cardiovascular/peripheral vascular: No chest pain, no palpitations, no edema, no shortness of breath Gastrointestinal: No new onset incontinence, normal bowel movements reported Genitourinary: No new onset incontinence Musculoskeletal: Low back pain, right hip pain, right ankle pain Psychiatric: [Normal mood/affect] Neurological: [Denies weakness in extremities], [denies balance issues] Objective:: Physical Exam: General: Alert and oriented x3, no acute distress, pleasant and cooperative, [on room air] Lungs: Respirations even and unlabored, symmetrical chest expansion Eyes: PERRL Musculoskeletal: Flexion and extension of lumbar [spine] somewhat guarded secondary to pain Right Foot/Ankle/Leg: +2 Edema, cooler to touch compared to the right, dorsal pedialis is regular and same with the left, redder in color compared to the left foot. 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 Even with all the intervention, patient continues to have chronic pain on his right ankle. He is taking Lyrica 150 mg twice a day with no relief of peripheral neuropathy symptoms. Patient states that his right ankle/foot is always swollen, cool to touch, and different in color compared to his left foot. 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 Patient also has chronic low back pain that radiates to bilateral lower extremities. He has tried and failed conservative therapy such as oral medication, injective therapy, physical therapy, and at home exercise program in 6 weeks. Due to his CRPS type I and degenerative disc disease with lumbar radiculopathy symptoms, the patient is a good candidate for a spinal cord stimulator. Patient has done his psychiatric evaluation and has been deemed competent appropriate for the spinal cord stimulator. I will schedule the patient for a spinal cord stimulator trial. Risks and benefits of th
== END ==
PROVIDERS: Visit Provider Student in an Organized Health Care Education/Training Program
DX: M51.16 Intervertebral disc disorders with radiculopathy, lumbar region (principal); M16.11 Unilateral primary osteoarthritis, right hip; G90.521 Complex regional pain syndrome I of right lower limb
CPT/HCPCS: 99212; G0463

== ENCOUNTER → 2021-09-14 14:02 | Outpatient (POV) | payer OTHER, SELFPAY ==
[2021-09-14 14:08] VITALS: BP 124/65; PULSE 90; RESP 20; O2SAT 97; BMI 32.8
--- NOTE | 2021-09-14 14:32 | HMH.PAINSOAP ---
[facility] Pain Management SOAP Note Subjective:: Patient is a pleasant 52-year-old male who presents today for follow-up. Patient is currently being treated for degenerative disc disease of lumbar spine with lumbar radiculopathy symptoms, bilateral hip pain, CRPS type I on the right ankle. We have been managing this patient with Lyrica 150 mg twice a day. He also take ibuprofen 800 mg. Patient states that this medications are not helping manage his pain. He has been seeing orthopedics who says that he could benefit from a hip replacement but according to them, he is too young for this procedure. We also have Dr. The patient that he is a good candidate for spinal cord stimulator. We have referred the patient for psychiatric evaluation and he has been deemed appropriate and competent for a spinal cord stimulator. Patient is also here today to see if there is any other medication that he can take to help with his pain. He has been tried on tramadol 50 mg 3 times a day in the past with minimal relief of symptoms. We had stopped providing this medication to the patient in June of this year. He rates his pain today as 9 out of 10. [facility] #[id number] with an active morphine equivalent of 0. Review of Systems: General: No recent weight changes, no fever, no sleep disturbances Respiratory: No cough, no shortness of air, no recurring pulmonary infections Cardiovascular/peripheral vascular: No chest pain, no palpitations, no edema, no shortness of breath Gastrointestinal: No new onset incontinence, normal bowel movements reported Genitourinary: No new onset incontinence Musculoskeletal: Low back pain, bilateral hip pain, right ankle pain Psychiatric: [Normal mood/affect] Neurological: [Denies weakness in extremities], [denies balance issues] Objective:: Physical Exam: General: Alert and oriented x3, no acute distress, pleasant and cooperative, [on room air] Lungs: Respirations even and unlabored, symmetrical chest expansion Eyes: PERRL Musculoskeletal: Flexion and extension of lumbar [spine] somewhat guarded secondary to pain, [antalgic gait noted]; limited range of motion of bilateral hips and right ankle secondary to pain Neurological: Speech clear, no gross sensory deficit Assessment:: Degenerative disc disease of lumbar spine with lumbar radiculopathy symptoms Osteoarthritis of the right hip 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 Patient is also taking 800 mg of ibuprofen. Patient states that these medications are not helping manage his pain. He has been approved by insurance for a spinal cord stimulator trial. I have discussed this procedure in detail with the patient and he would like to proceed with a spinal cord stimulator trial. In the interim, I recommended the patient take Tylenol up to 1500 mg a day. I will start the patient on diclofenac 75 mg 3 times a day and tizanidine 2 mg 3 times a day. Patient is to take his diclofenac with food every single time. Follow-up after his trial. Patient has been instructed to contact the clinic with any concerns before the next appointment. Dr. Landaverde has reviewed this note and agrees with this plan of care. This note was dictated using voice recognition software and make contain errors or omissions. [facility] History Medical History: Reports:: Anxiety, Diabetes Mellitus Type 2, Gastroesophageal Reflux Disease(GERD), Hyperlipidemia, Hypertension Denies:: Cancer, Diabetes Mellitus Type 1, Internal Pacemaker, MRSA, Seizures *Have you ever received a pneumonia vaccine?: No *Have you received a flu vaccine this season?: No Other Medical History: Reports: Arthritis. Denies: Blood Transfusion Reaction Laterality Cases: Right: Other, Bilateral: Tonsillectomy Other Surgeries: Yes: No Previous Surgery, Other. No: Pacemaker Amputation: No Fractures: Yes (right ankle fx with hardware placement, hardware removed a year later) - *
== END ==
PROVIDERS: Visit Provider Student in an Organized Health Care Education/Training Program
DX: M51.16 Intervertebral disc disorders with radiculopathy, lumbar region (principal); M16.11 Unilateral primary osteoarthritis, right hip; G90.521 Complex regional pain syndrome I of right lower limb
CPT/HCPCS: 99212; G0463